=== PATIENT | male | born 1960 | race Caucasian/White ===

== ENCOUNTER 2022-06-28 16:17 | Outpatient (CLI) | payer OTHER, SELFPAY ==
[2022-06-28 22:39] LABS: PSA Screen* 1.17 ng/mL (0.10-4.00)
[2022-06-29 04:00] LABS: Chloride* 99 mmol/L (96-114); Potassium* 4.1 mmol/L (3.6-5.1); Sodium* 135 mmol/L (135-149)
[2022-06-29 04:03] LABS: Blood Urea Nitrogen* 23 mg/dL (7-30); Carbon Dioxide* 28 mmol/L (20-32); Creatinine* 0.9 mg/dL (0.5-1.5); Estimated Glomerular Filt Rate 96 ml/min; Glucose* 121 mg/dL (60-115)
[2022-06-29 04:04] LABS: Calcium* 9.6 mg/dL (8.4-10.6)
== END 2022-06-28 16:18 | disposition home or self-care (01) ==
PROVIDERS: PCP Family Medicine; Visit Provider Family Medicine
DX: E03.9 Hypothyroidism, unspecified (principal); I10 Essential (primary) hypertension; Z12.5 Encounter for screening for malignant neoplasm of prostate; Z13.6 Encounter for screening for cardiovascular disorders
CPT/HCPCS: 80048; 80185; 84153; 84443

== ENCOUNTER 2022-08-03 12:50 | Outpatient (CLI) | payer OTHER, SELFPAY ==
[2022-08-03 14:28] LABS: Chloride* 96 mmol/L (96-114); Sodium* 133 mmol/L (135-149)
[2022-08-03 14:29] LABS: Potassium* 5.4 mmol/L (3.6-5.1)
[2022-08-03 14:31] LABS: Creatinine* 5.1 mg/dL (0.5-1.5); Estimated Glomerular Filt Rate 12 ml/min
[2022-08-03 14:32] LABS: Blood Urea Nitrogen* 83 mg/dL (7-30); Calcium* 8.7 mg/dL (8.4-10.6); Carbon Dioxide* 19 mmol/L (20-32); Glucose* 139 mg/dL (60-115)
== END 2022-08-03 12:51 | disposition home or self-care (01) ==
PROVIDERS: PCP Family Medicine; Visit Provider Family Medicine
DX: I10 Essential (primary) hypertension (principal); E03.9 Hypothyroidism, unspecified
CPT/HCPCS: 80048; 84443

== ENCOUNTER 2022-08-04 13:04 | Inpatient (IN) | payer OTHER, SELFPAY ==
[2022-08-04] VITALS (7 sets, daily range): BP systolic 103–113; BP diastolic 40–58; PULSE 62–67; RESP 18; TEMP 36.3–36.6; O2SAT 92–97; BMI 51.6; BMI 56.4
--- NOTE | 2022-08-04 14:08 | ED.GENADULT ---
HPI - General Adult General Time Seen by Provider: 14:09 Date Seen: 08/04/22 Chief complaint: Unspecified Complaint, Adult Stated complaint: Critical Lab Creatinine Time Seen by Provider: 08/04/22 14:05 Source: patient, RN notes reviewed, old records reviewed and other ( Dr. Hopkins phone call) Mode of arrival: ambulatory Limitations: no limitations History of Present Illness HPI narrative: Oscar is a very pleasant 62-year-old gentleman with a history of recent antibiotic treatment for cellulitis, chronic lower extremity edema, history of DVT, who is sent to the emergency room by his primary physician Dr. Hopkins for elevated creatinine of 5. Oscar was an inpatient at [address] where he was treated IV Ancef, vancomycin and discharged on amoxicillin and Bactrim after improvement. He was also treated for edema and was able to diurese 20-22 lb. He notes that he has had some return of that fluid but certainly much improved from previous hospitalization. According to his creatinine was normal. Dr. Hopkins endorses this but Oscar had blood drawn yesterday which showed a creatinine of 5 and a potassium of 5.4. Oscar notes that he has been feeling fatigued today and did have an episodic shortness of breath but that has not persisted. He has not been vomiting any denies any chest pain. He notes no fevers or chills and although there has been significant improvement in his left lower extremity edema with sealing of the open wound and decreased redness it is still not back to normal in terms of color. Patient notes that he has had approximately 60 oz of water today. Did not take in any Gatorade or Powerade. He is very frustrated as his advice has been to elevate his leg but he works a job where that is impossible. He works in [employer]. Lives in [place]. Related Data Home Medications Medication Instructions Recorded Confirmed famotidine 20 mg tablet 20 mg PO BID 06/25/22 08/04/22 multivitamin (Multiple Vitamins 1 tab PO DAILY 06/25/22 08/04/22 tablet) potassium chloride 20 mEq 20 meq PO DAILY 06/25/22 08/04/22 tablet,extended release(part/cryst) phenytoin sodium extended 100 mg 300 - 400 mg PO BID 06/28/22 08/04/22 capsule amoxicillin 500 mg capsule 500 mg PO TID 08/03/22 08/04/22 sulfamethoxazole 800 2 tab PO BID 08/03/22 08/04/22 mg-trimethoprim 160 mg tablet furosemide 40 mg tablet 80 mg PO DAILY 08/04/22 08/04/22 gabapentin 600 mg tablet 900 mg PO HS 08/04/22 08/04/22 levothyroxine 50 mcg tablet 50 mcg PO DAILY 08/04/22 08/04/22 (Synthroid) tamsulosin 0.4 mg capsule 0.4 mg PO DAILY 08/04/22 08/04/22 warfarin 5 mg tablet (Jantoven) 5 - 7.5 mg PO DAILY 08/04/22 08/04/22 Previous Rx's Medication Instructions Recorded lisinopril 20 2 tab PO DAILY #180 tabs 07/14/22 mg-hydrochlorothiazide 25 mg tablet Allergies Allergy/AdvReac Type Severity Reaction Status Date / Time Fluconazole Allergy Intermediate chest heavy Uncoded 08/03/22 12:43 Review of Systems Status of ROS: Reports: 10 or more systems reviewed and unremarkable except as noted in History and below Const: Denies: fever or chills Eyes: Denies: change in vision ENMT: Denies: throat pain or difficulty swallowing Cardio: Reports: edema, swelling of feet/ankles ( Chronic but improved) and shortness of breath with exertion ( transient); Denies: chest pain or palpitations Resp: Reports: shortness of breath ( transient); Denies: cough GI: Denies: abdominal pain, nausea, vomiting, diarrhea or difficulty swallowing : Denies: painful urination Musculo: Denies: back pain or extremity pain Neuro: Denies: headache or weakness in extremities Endo: Denies: excessive urination [facility] Medical History Acute medial meniscus tear of right knee (06/10/20) Bilateral carpal tunnel syndrome BPH (benign prostatic hyperplasia) Edema Epilepsy Exogenous obesity Gastroesophageal reflux disease History of adenomatous polyp of colon (12/27/17) Hyperlipidemia (01/20/10) Hypertension Hypothyroidism Mild episode of recurrent major depressive disorder (06/25/10) Obstructive sleep apnea syndrome Osteoarthritis of knee Peripheral neuropathy Recurrent deep vein thrombosis (DVT) (2006) Stress fracture of metatarsal bone of left foot (11/2020) Umbilical hernia Family History Other Denzel's granulomatosis Social History Narrative: -Michelle 4 kids Non smoker Social EtOH Smoking Status: Former smoker Non-prescribed substance use: denies use Little interest or pleasure in doing things: not at all Feeling down, depressed, or hopeless: not at all Exam Narrative: Exam Narrative: Oscar is a very pleasant gentleman. His accompanies him. They are very elsa couple. Oscar is mentating and speaking normally. Neck is supple. Heart with regular rate and rhythm. Lungs are clear to auscultation. Abdomen is obese soft nontender. Lower extremities spoke with bilateral chronic edema. Left soc is removed and patient has a scab noted over anterior sore. Leg is not significantly warm to the touch. It does have dry skin that is flaking. It is somewhat erythematous but there is no well-demarcated boundaries of this. Const: Vital Signs, click to edit/add: Vital Signs - 24 hr 08/04/22 14:01 Temperature 97.4 F L Pulse Rate [Right Pulse Oximeter] 67 Respiratory Rate 18 Blood Pressure [Le ft Upper Arm] 103/50 L Pulse Oximetry 96 Oxygen Delivery Me thod Room Air Documenting provider has reviewed patient's vital signs: yes Course Course Hospital Course: Will place an IV and give 1 L of normal saline. EKG, comprehensive panel, CBC, CRP ordered at this time. Vital Signs Vital signs: Initial Vital Signs Temperature 97.4 F L 08/04/22 14:01 Temperature Source Temporal Artery Scan 08/04/22 14:01 Pulse Rate 67 08/04/22 14:01 Respiratory Rate 18 08/04/22 14:01 Blood Pressure 103/50 L 08/04/22 14:01 Blood Pressure Mean 67 08/04/22 14:01 Blood Pressure Position Sitting 08/04/22 14:01 Pulse Oximetry 96 08/04/22 14:01 Oxygen Delivery Method 08/04/22 14:01 Vital Signs Temperature 97.4 F L 08/04/22 14:01 Pulse Rate 67 08/04/22 14:01 Respiratory Rate 18 08/04/22 14:01 Blood Pressure 103/50 L 08/04/22 14:01 Pulse Oximetry 96 08/04/22 14:01 Oxygen Delivery Method 08/04/22 14:01 Temperature 97.4 F L 08/04/22 14:01 Pulse Rate 67 08/04/22 14:01 Respiratory Rate 18 08/04/22 14:01 Blood Pressure 103/50 L 08/04/22 14:01 Pulse Oximetry 96 08/04/22 14:01 Oxygen Delivery Method 08/04/22 14:01 Medical Decision Making MDM Narrative Medical decision making narrative: 1. Acute renal failure-likely a combination of aggressive diuresis and use of Bactrim. 1 L of normal saline at this time. Awaiting recheck of creatinine and potassium as the 5 was reflective of yesterday's status. Patient's creatinine has improved to 3.6 from yesterday's 5.1. Potassium has decreased to 5.0. 2. Left lower extremity cellulitis- improved. Antibiotic will need to be continued without Bactrim with appropriate coverage. 3. Disposition -Dr. Nguyen is in the department speaking to the patient. She is offering him discharged home with continued monitoring or inpatient treatment. Addendum: Patient will be admitted under outpatient observation for IV fluids. COVID negative Medical Records Medical records reviewed: Yes I reviewed the patient's medical records Lab Data Lab results reviewed: Yes I reviewed the patient's lab results Labs: Lab Results 08/04/22 08/04/22 08/04/22 Range/Units 15:28 15:38 15:38 WBC 6.12 (4.50-11.00) K/uL RBC 3.78 L (4.30-5.90) m/uL Hgb 11.7 L (13.5-17.5) gm/dL Hct 35.7 L (37.0-53.0) % MCV 94 (80-100) fL MCH 31 (26-34) pg MCHC 33 (32-36) gm/dL RDW Coeff of Kapil 13.0 (11.5-15.5) % Plt Count 370 (140-440) K/uL Neut % (Auto) 56.1 (42.0-72.0) % Lymph % (Auto) 26.8 (20-44) % [place] % (Auto) 11.1 H (0.0-11.0) % Eos % (Auto) 4.2 (0.0-7.0) % Baso % (Auto) 1.6 (0.0-3.0) % Neut # (Auto) 3.43 (1.7-7.0) K/uL Lymph # (Auto) 1.64 (0.90-2.90) K/uL [place] # (Auto) 0.70 (0.00-0.90) K/UL Eos # (Auto) 0.26 (0.00-0.50) K/uL Baso # (Auto) 0.10 (0.00-0.30) K/uL Abs Immat Gran (auto) 0.01 (0.00-0.30) K/uL Sodium 132 L (135-149) mmol/L Potassium 5.0 (3.6-5.1) mmol/L Chloride 99 (96-114) mmol/L Carbon Dioxide 20 (20-32) mmol/L BUN 85 H (7-30) mg/dL Creatinine 3.6 H (0.5-1.5) mg/dL Estimated Creat Clear 18.95 Estimated GFR 18 ml/min Glucose 106 (60-115) mg/dL Calcium 8.9 (8.4-10.6) mg/dL Total Bilirubin 0.3 (0.1-1.5) mg/dL AST 49 H (12-35) U/L ALT 40 (4-50) U/L Alkaline Phosphatase 124 (40-150) U/L C-Reactive Protein 3.2 H (0.5-1.0) mg/dL Total Protein 7.5 (6.0-8.3) g/dL Albumin 3.9 (3.3-5.0) g/dL SARS-CoV-2 (PCR) Negative SARS-CoV-2 (Negative) ECG Data Attestation: I personally reviewed and interpreted this ECG as follows: Interpretation: EKG by my read shows sinus rhythm at a rate of 62. There are no acute ST or T-wave changes noted. No peaked T-waves to indicate hyper Melanie Mary Ann. Discharge Plan Discharge Clinical Impression: Acute renal failure, Cellulitis Patient Disposition: Admitted As Inpatient Condition: Unchanged
[2022-08-04 15:47] LABS: Basophils Percent Auto 1.6 % (0.0-3.0); Eosinophils Absolute Auto 0.26 K/uL (0.00-0.50); Eosinophils Percent Auto 4.2 % (0.0-7.0); Hematocrit 35.7 % (37.0-53.0); Hemoglobin* 11.7 gm/dL (13.5-17.5); Immature Granulocytes Abs Auto 0.01 K/uL (0.00-0.30); Lymphocytes Absolute Auto 1.64 K/uL (0.90-2.90); Lymphocytes Percent Auto 26.8 % (20-44); Mean Corpuscular HGB Conc 33 gm/dL (32-36); Mean Corpuscular Hemoglobin 31 pg (26-34); Mean Corpuscular Volume 94 fL (80-100); Monocytes Percent Auto 11.1 % (0.0-11.0); Neutrophils Absolute Auto 3.43 K/uL (1.7-7.0); Neutrophils Percent Auto 56.1 % (42.0-72.0); Platelet Count* 370 K/uL (140-440); Red Blood Count 3.78 m/uL (4.30-5.90); White Blood Count* 6.12 K/uL (4.50-11.00)
[2022-08-04 15:54] LABS: Slide Review Reflex No
[2022-08-04 16:05] LABS: Albumin* 3.9 g/dL (3.3-5.0); Chloride* 99 mmol/L (96-114); Sodium* 132 mmol/L (135-149)
[2022-08-04 16:07] LABS: Bilirubin Total* 0.3 mg/dL (0.1-1.5); Creatinine* 3.6 mg/dL (0.5-1.5); Est. Creatinine Clearance* 18.95; Estimated Glomerular Filt Rate 18 ml/min
[2022-08-04 16:08] LABS: Alanine Aminotransferase* 40 U/L (4-50); Alkaline Phosphatase* 124 U/L (40-150); Aspartate Amino Transferase* 49 U/L (12-35); Blood Urea Nitrogen* 85 mg/dL (7-30); Carbon Dioxide* 20 mmol/L (20-32); Glucose* 106 mg/dL (60-115); Total Protein* 7.5 g/dL (6.0-8.3)
[2022-08-04 16:09] LABS: Calcium* 8.9 mg/dL (8.4-10.6)
[2022-08-04 16:11] LABS: C Reactive Protein* 3.2 mg/dL (0.5-1.0)
--- NOTE | 2022-08-04 16:25 | P.IMHP_ITS ---
Hospitalist- H&P: HPI History of Present Illness Date Seen: 08/04/22 Chief complaint: Critical Lab Creatinine Narrative: Oscar Guzman is a 62 year old male who presented to the ED with his after receiving abnormal lab results from his outpatient PCP appt yesterday with Dr. Hopkins. He was being seen for hospital follow-up, had a BMP drawn which exhibited a creatinine of 5.1 and a potassium of 5.4. He was called with results this morning, drink close to a liter of water at work, and repeat creatinine today has improved to 3.6 with a potassium of 5.0. EKG in ED was reassuring. Patient denies chest pain, shortness of breath, urinary symptoms, abdominal pain. Recently hospitalized at [address] (07/21-07/29/2022), records reviewed. Stay notable for LLE cellulitis (on presentation, was febrile and tachycardic with lactate of 2.5). Wound culture obtained, positive for Serratia and Enterococcus (placed on Ampicillin and Bactrim 2/2 sensitivities). During stay, he had an acute nonverbal event and a stroke code was called. Patient had a reassuring CT of head and CTA of head and neck; Neurology felt that symptoms were more likely related to complex partial seizure than acute CVA given history of seizure d/o and no residual deficits from event. Patient also has significant lower extremity edema; diuresed quite well during hospital stay in [place] (lost 22 lb). He is being worked up by PCP for this. Medical and surgical history noted below. Patient is currently a nonsmoker, social ETOH user. Lives with in [place], [place]. Review of Systems Status of ROS: Reports: 10 or more systems reviewed and unremarkable except as noted in History and below [facility] Medical History Acute medial meniscus tear of right knee (06/10/20) Bilateral carpal tunnel syndrome BPH (benign prostatic hyperplasia) Edema Epilepsy Exogenous obesity Gastroesophageal reflux disease History of adenomatous polyp of colon (12/27/17) Hyperlipidemia (01/20/10) Hypertension Hypothyroidism Mild episode of recurrent major depressive disorder (06/25/10) Obstructive sleep apnea syndrome Osteoarthritis of knee Peripheral neuropathy Recurrent deep vein thrombosis (DVT) (2006) Stress fracture of metatarsal bone of left foot (11/2020) Umbilical hernia Family History Other Denzel's granulomatosis Social History Narrative: -Michelle 4 kids Non smoker Social EtOH Highest level of school completed/degree received: high school graduate Smoking Status: Former smoker How often do you have a drink containing alcohol: monthly or less Alcohol type: beer Alcohol type details: social drinker How many standard drinks containing alcohol do you have on a typical day: 1 or 2 How often do you have six or more drinks on one occasion: Monthly AUDIT-C Alcohol total score: 3 Non-prescribed substance use: denies use Little interest or pleasure in doing things: not at all Feeling down, depressed, or hopeless: not at all Meds Home Medications and Allergies Home Medications Medication Instructions Recorded Confirmed Type famotidine 20 mg tablet 20 mg PO BID 06/25/22 08/04/22 History multivitamin (Multiple Vitamins 1 tab PO DAILY 06/25/22 08/04/22 History tablet) potassium chloride 20 mEq 20 meq PO DAILY 06/25/22 08/04/22 History tablet,extended release(part/cryst) phenytoin sodium extended 100 mg 300 - 400 mg PO BID 06/28/22 08/04/22 History capsule amoxicillin 500 mg capsule 500 mg PO TID 08/03/22 08/04/22 History sulfamethoxazole 800 2 tab PO BID 08/03/22 08/04/22 History mg-trimethoprim 160 mg tablet furosemide 40 mg tablet 80 mg PO DAILY 08/04/22 08/04/22 History gabapentin 600 mg tablet 900 mg PO HS 08/04/22 08/04/22 History levothyroxine 50 mcg tablet 50 mcg PO DAILY 08/04/22 08/04/22 History (Synthroid) tamsulosin 0.4 mg capsule 0.4 mg PO DAILY 08/04/22 08/04/22 History warfarin 5 mg tablet (Jantoven) 5 - 7.5 mg PO DAILY 08/04/22 08/04/22 History Allergies Allergy/AdvReac Type Severity Reaction Status Date / Time fluconazole AdvReac Intermediate Verified 08/04/22 17:24 Exam Narrative: Exam Narrative: GEN: Alert and oriented, nontoxic in appearance and speaking in full sentence HEENT: Normal external ears, EOMIs bilaterally or me CV: RRR, No concerning murmurs, rubs, or gallops R: LCTA bilaterally without concerning wheezing, rales, or rhonchi Ext: 3+ pitting edema BLE, erythema of LLE anteriorly Skin: Besides erythema of LLE, no other concerning skin findings on exposed skin Neuro: Nonfocal, no resting tremor Psych: Appropriate Const: Vital Signs, click to edit/add: Vital Signs - 24 hr 08/04/22 14:01 Temperature 97.4 F L Pulse Rate [Right Pulse Oximeter] 67 Respiratory Rate 18 Blood Pressure [Le ft Upper Arm] 103/50 L Pulse Oximetry 96 Oxygen Delivery Me thod Room Air Hospitalist - H&P: Result Labs Labs: Short CBC 08/04/22 Range/Units 15:38 WBC 6.12 (4.50-11.00) K/uL Hgb 11.7 L (13.5-17.5) gm/dL Hct 35.7 L (37.0-53.0) % Plt Count 370 (140-440) K/uL BMP 08/04/22 15:38 Sodium 132 L Potassium 5.0 Chloride 99 Carbon Dioxide 20 BUN 85 H Creatinine 3.6 H Glucose 106 Calcium 8.9 Liver Function 08/04/22 Range/Units 15:38 Total Bilirubin 0.3 (0.1-1.5) mg/dL AST 49 H (12-35) U/L ALT 40 (4-50) U/L Alkaline Phosphatase 124 (40-150) U/L Albumin 3.9 (3.3-5.0) g/dL Assessment and Plan Assessment and plan (1) Acute renal failure: Status: Acute Assessment and Plan: - likely iatrogenic from Bactrim, potassium within normal limits today - will admit for IVFs, hold Bactrim, Lasix, potassium supplementation, and Lisinopril - follow renal function (2) Edema: Status: Acute Assessment and Plan: - hold home dose of Lasix during stay given acute kidney injury - patient is having workup as an outpatient with PCP for his edema (3) Epilepsy: Status: Acute Assessment and Plan: - quiescent, seizure precautions, continue home meds (4) Cellulitis of left leg: Status: Acute Assessment and Plan: - for Serratia, we will hold her Bactrim and treat with ceftriaxone per sensitivities from outside hospital - continue amoxicillin for Enterococcus - wound is overall improving - plan to discharge on Amoxicillin for Enterococcus and Omnicef for Serratia Plan - per above - Home coumadin for ppx - lives independently with , plans to go home with her upon discharge - Full Code status
[2022-08-04 16:28] LABS: SARS PCR* Negative SARS-CoV-2 (Negative)
[2022-08-04 16:52] LABS: Appearance Urine Clear (Clear); Bilirubin Urine Negative (Negative); Blood Urine Negative (Negative); Color Urine Yellow (Yellow); Glucose Urine Negative (Negative); Ketones Urine Negative (Negative); Leukocyte Esterase Urine Negative (Negative); Nitrite Urine Negative (Negative); Protein Urine Negative (Negative); Urobilinogen Urine 0.2 (0.2-1.0); pH Urine 5.5 (5.0-8.5)
[2022-08-04 17:09] LABS: Mucus Urine Few; RBC Urine 0-2 (0-2); Squamous Epithelial Cell Urine Few (None-Few); WBC Urine 0-2 (0-5)
[2022-08-04] MEDS: cefTRIAXone 1 GM in 0.9 % SODIUM CHLORIDE Mini-bag 100 ML IVPB (19:36)
[2022-08-04] MEDS: 0.9 % SODIUM CHLORIDE 1000 ml 1,000 ML 250 ML IV (19:37)
[2022-08-04] MEDS: PHENYTOIN EXTENDED RELEASE 100 MG CAPSULE 400 MG PO (22:02)
[2022-08-04] MEDS: ACETAMINOPHEN 325 MG TABLET 975 MG PO (22:03)
[2022-08-04] MEDS: GABAPENTIN 300 MG CAPSULE 900 MG PO (22:04)
[2022-08-04] MEDS: AMOXICILLIN 250 MG CAPSULE 500 MG PO (22:16)
[2022-08-04] MEDS: FAMOTIDINE 20 MG TABLET PO (22:16)
[2022-08-05] VITALS (10 sets, daily range): BP systolic 105–123; BP diastolic 45–65; PULSE 56–77; RESP 18; TEMP 36.4–36.8; O2SAT 92–98
[2022-08-05] MEDS: 0.9 % SODIUM CHLORIDE 1000 ml 1,000 ML 125 ML IV ×2 (00:18→09:33)
--- NOTE | 2022-08-05 04:44 | PC.NURSE ---
[id number]: patient up ad zenia, appears to have slept well overnight, uses home CPAP overnight lower legs red and warm bilaterally but patient reports no pain. tele NSR
[2022-08-05] MEDS: ACETAMINOPHEN 325 MG TABLET 975 MG PO (05:09)
[2022-08-05] MEDS: LEVOTHYROXINE 50 MCG TABLET PO (06:16)
[2022-08-05 08:08] LABS: Basophils Percent Auto 1.6 % (0.0-3.0); Eosinophils Percent Auto 5.3 % (0.0-7.0); Hematocrit 38.7 % (37.0-53.0); Hemoglobin* 12.3 gm/dL (13.5-17.5); Lymphocytes Percent Auto 30.4 % (20-44); Mean Corpuscular HGB Conc 32 gm/dL (32-36); Mean Corpuscular Hemoglobin 31 pg (26-34); Mean Corpuscular Volume 96 fL (80-100); Monocytes Percent Auto 10.8 % (0.0-11.0); Neutrophils Percent Auto 51.7 % (42.0-72.0); Platelet Count* 357 K/uL (140-440); RDW Coefficient of Variation % 13.2 % (11.5-15.5); Red Blood Count 4.02 m/uL (4.30-5.90); White Blood Count* 4.34 K/uL (4.50-11.00)
[2022-08-05 08:12] LABS: Slide Review Reflex No
[2022-08-05 08:30] LABS: Chloride* 104 mmol/L (96-114)
[2022-08-05 08:31] LABS: Sodium* 137 mmol/L (135-149)
[2022-08-05 08:32] LABS: INR 2.06 (0.91-1.10); Prothrombin Time 24.3 Seconds
[2022-08-05 08:33] LABS: Carbon Dioxide* 24 mmol/L (20-32); Creatinine* 1.8 mg/dL (0.5-1.5); Est. Creatinine Clearance* 35.17; Estimated Glomerular Filt Rate 42 ml/min
[2022-08-05 08:34] LABS: Blood Urea Nitrogen* 63 mg/dL (7-30); Calcium* 9.3 mg/dL (8.4-10.6); Glucose* 120 mg/dL (60-115)
[2022-08-05 08:42] LABS: Potassium* 6.2 mmol/L (3.6-5.1)
[2022-08-05] MEDS: FUROSEMIDE 10 MG/ML inj 40 MG IVP (09:33)
[2022-08-05] MEDS: TAMSULOSIN HCL 0.4 MG CAPSULE PO (09:33)
[2022-08-05] MEDS: WARFARIN 2.5 MG TABLET 7.5 MG PO (09:34)
[2022-08-05] MEDS: FAMOTIDINE 20 MG TABLET PO (09:34)
[2022-08-05] MEDS: PHENYTOIN EXTENDED RELEASE 100 MG CAPSULE 300 MG PO (09:35)
[2022-08-05 12:17] LABS: Magnesium* 2.5 mg/dL (1.5-2.6)
[2022-08-05 14:21] LABS: Potassium* 5.6 mmol/L (3.6-5.1)
--- NOTE | 2022-08-05 15:32 | PM.DS1 ---
DS: Providers Provider Date Seen: 08/05/22 Date of admission: 08/04/22 17:20 Primary care physician: Ezequiel Hopkins MD Admitting Clinician: Hemalatha Nguyen MD Attending Physician on discharge: Hemalatha Nguyen MD Date of Discharge: 08/05/22 DS: Diagnosis Discharge Diagnosis (1) Acute renal failure: Status: Acute Problem details: Acute renal failure likely due to Bactrim treatment primarily. Recommend no further Bactrim therapy. Other contributors include diuretic therapy and lisinopril. Creatinine improved from 5.4 to 1.8 over 2 days. Stop Bactrim. Hold lisinopril hydrochlorothiazide for now. Avoid NSAIDs for now. Low-potassium diet for now Continue furosemide 80 mg daily. (2) Hyperkalemia: Status: Acute Problem details: Due to acute kidney injury and Bactrim therapy. Improving. Hold lisinopril/HCTZ and potassium. Check basic metabolic panel tomorrow. Continue furosemide. Low-potassium diet for now. Avoid NSAIDs for now. Follow up in clinic in 4 days for recheck of basic metabolic panel and blood pressure and edema (3) Cellulitis of left leg: Status: Acute Problem details: Cellulitis looks resolved. Stop antibiotics. (4) Edema: Status: Acute Problem details: Longstanding lymphedema. Primary treatment is compression and elevation. Ongoing diuretic therapy also likely necessary. (5) Hypertension: Status: Acute Problem details: Monitor hypertension with multiple changes to medications noted above. DS: Summary Hospital Course Hospital Course: 62-year-old male admitted to the hospital with acute kidney injury. Patient had been treated at [address] in [place] over the last 10 days for leg cellulitis. He has been on Bactrim and Keflex. Laboratory studies incidentally found to have hyperkalemia and elevated creatinine of 5.4. He was admitted to the hospital with the likely culprit of his problem being Bactrim. Bactrim and lisinopril and potassium were held. His potassium went up a little bit overnight but improved today now at 5.6. His creatinine went down to 1.8. He was relatively asymptomatic with this. Inspection of his leg showed very mild redness of the left leg compared to the right. Antibiotics were discontinued. Status at Discharge Functional status at discharge: independent ambulation Overall status at discharge: patient is back to baseline Time Spent with Patient Time attestation: Total time spent providing and/or coordinating discharge services: Time spent: Greater than 30 minutes Exam Narrative: Exam Narrative: He is alert and appears in no distress. Respirations are clear to auscultation. Cardiovascular: S1, S2, regular rate and rhythm. No murmur gallop or rub. Abdomen is soft without tenderness or mass. Large abdominal pannus. Lower extremities are examined with 3+ edema bilaterally mild erythema on the left palomares. None on the right. No tenderness. Cracking skin on the bottom of his foot without evidence of infection. Const: Vital Signs, click to edit/add: Vital Signs - 24 hr 08/04/22 17:37 08/04/22 17:38 08/04/22 17:41 Temperature 97.3 F L 97.3 F L Pulse Rate Pulse Rate [Right Radial] 66 Respiratory Rate 18 18 Blood Pressure [Ri ght Arm] 113/40 L 113/40 L Pulse Oximetry 96 97 97 Oxygen Delivery Me thod Room Air Room Air Room Air 08/04/22 17:52 08/04/22 22:33 08/04/22 23:00 Temperature 98 F Pulse Rate 62 Pulse Rate [Right Radial] 62 Respiratory Rate 18 18 Blood Pressure [Ri ght Arm] 104/58 L Pulse Oximetry 97 92 Oxygen Delivery Me thod Room Air Room Air 08/04/22 23:00 08/05/22 00:00 08/05/22 03:00 Temperature 98.3 F Pulse Rate Pulse Rate [Right Radial] 62 70 Respiratory Rate 18 18 Blood Pressure [Ri ght Arm] 108/54 L 112/50 L Pulse Oximetry 92 98 Oxygen Delivery Me thod CPAP CPAP 08/05/22 07:33 08/05/22 08:00 08/05/22 08:00 Temperature 97.5 F L Pulse Rate 56 L Pulse Rate [Right Radial] 67 67 Respiratory Rate 18 18 Blood Pressure [Ri ght Arm] 117/55 L Pulse Oximetry 98 Oxygen Delivery Me thod Room Air CPAP 08/05/22 09:52 08/05/22 12:15 Temperature 97.7 F Pulse Rate Pulse Rate [Right Radial] 58 L Respiratory Rate 18 Blood Pressure [Ri ght Arm] 105/45 L Pulse Oximetry 98 97 Oxygen Delivery Me thod Room Air Room Air DS: Data Data Completed and Pending Labs on day of discharge: Labs from last 24 hours 08/05/22 08/05/22 08/05/22 13:37 08:02 08:02 WBC 4.34 L RBC 4.02 L Hgb 12.3 L Hct 38.7 MCV 96 MCH 31 MCHC 32 RDW Coeff of Kapil 13.2 Plt Count 357 Neut % (Auto) 51.7 Lymph % (Auto) 30.4 [place] % (Auto) 10.8 Eos % (Auto) 5.3 Baso % (Auto) 1.6 Neut # (Auto) 2.20 Lymph # (Auto) 1.30 [place] # (Auto) 0.50 Eos # (Auto) 0.20 Baso # (Auto) 0.10 Abs Immat Gran (auto) 0.01 Imm/Tot Granulo (auto) Pending INR Sodium 137 Potassium 5.6 H 6.2 H* Chloride 104 Carbon Dioxide 24 BUN 63 H Creatinine 1.8 H Estimated Creat Clear 35.17 Estimated GFR 42 Glucose 120 H Calcium 9.3 Magnesium 2.5 Total Bilirubin AST ALT Alkaline Phosphatase C-Reactive Protein Total Protein Albumin Urine Color Urine Appearance Urine pH Ur Specific [place] Urine Protein Urine Glucose (UA) Urine Ketones Urine Blood Urine Nitrite Urine Bilirubin Urine Urobilinogen Ur Leukocyte Esterase Urine RBC Urine WBC Ur Squamous Epith Cells Urine Bacteria Urine Mucus SARS-CoV-2 (PCR) 08/05/22 08/04/22 08/04/22 08:02 16:40 15:38 WBC RBC Hgb Hct MCV MCH MCHC RDW Coeff of Kapil Plt Count Neut % (Auto) Lymph % (Auto) [place] % (Auto) Eos % (Auto) Baso % (Auto) Neut # (Auto) Lymph # (Auto) [place] # (Auto) Eos # (Auto) Baso # (Auto) Abs Immat Gran (auto) Imm/Tot Granulo (auto) INR 2.06 H Sodium 132 L Potassium 5.0 Chloride 99 Carbon Dioxide 20 BUN 85 H Creatinine 3.6 H Estimated Creat Clear 18.95 Estimated GFR 18 Glucose 106 Calcium 8.9 Magnesium Total Bilirubin 0.3 AST 49 H ALT 40 Alkaline Phosphatase 124 C-Reactive Protein 3.2 H Total Protein 7.5 Albumin 3.9 Urine Color Yellow Urine Appearance Clear Urine pH 5.5 Ur Specific [place] 1.020 Urine Protein Negative Urine Glucose (UA) Negative Urine Ketones Negative Urine Blood Negative Urine Nitrite Negative Urine Bilirubin Negative Urine Urobilinogen 0.2 Ur Leukocyte Esterase Negative Urine RBC 0-2 Urine WBC 0-2 Ur Squamous Epith Cells Few Urine Bacteria None Urine Mucus Few A SARS-CoV-2 (PCR) 08/04/22 08/04/22 15:38 15:28 WBC 6.12 RBC 3.78 L Hgb 11.7 L Hct 35.7 L MCV 94 MCH 31 MCHC 33 RDW Coeff of Kapil 13.0 Plt Count 370 Neut % (Auto) 56.1 Lymph % (Auto) 26.8 [place] % (Auto) 11.1 H Eos % (Auto) 4.2 Baso % (Auto) 1.6 Neut # (Auto) 3.43 Lymph # (Auto) 1.64 [place] # (Auto) 0.70 Eos # (Auto) 0.26 Baso # (Auto) 0.10 Abs Immat Gran (auto) 0.01 Imm/Tot Granulo (auto) Not Reportable INR Sodium Potassium Chloride Carbon Dioxide BUN Creatinine Estimated Creat Clear Estimated GFR Glucose Calcium Magnesium Total Bilirubin AST ALT Alkaline Phosphatase C-Reactive Protein Total Protein Albumin Urine Color Urine Appearance Urine pH Ur Specific [place] Urine Protein Urine Glucose (UA) Urine Ketones Urine Blood Urine Nitrite Urine Bilirubin Urine Urobilinogen Ur Leukocyte Esterase Urine RBC Urine WBC Ur Squamous Epith Cells Urine Bacteria Urine Mucus SARS-CoV-2 (PCR) Negative SARS-CoV-2 Discharge Plan Discharge Disposition: Home, Self-Care Date of Admission: 08/04/22 17:20 Attending Provider on Discharge: Rory Lopez Primary Care Provider: Ezequiel Hopkins Condition: Unchanged Anticipated Discharge Date/Time: 08/05/22 14:45 Discharge Medications: Continued famotidine 20 mg tablet 20 mg PO BID multivitamin [Multiple Vitamins] Tablet 1 tab PO DAILY phenytoin sodium extended 100 mg capsule 300 - 400 mg PO BID Rx Instructions: 300 MG IN AM 400 MG IN PM gabapentin 600 mg tablet 900 mg PO HS tamsulosin 0.4 mg capsule 0.4 mg PO DAILY levothyroxine [Synthroid] 50 mcg tablet 50 mcg PO DAILY furosemide 40 mg tablet 80 mg PO DAILY warfarin [Jantoven] 5 mg tablet 5 - 7.5 mg PO DAILY Rx Instructions: 5 MG SUN, WED, FRI 7.5 ALL OTHER DAYS Discontinued potassium chloride 20 mEq tablet,ER particles/crystals 20 meq PO DAILY sulfamethoxazole-trimethoprim 800-160 mg tablet 2 tab PO BID amoxicillin 500 mg capsule 500 mg PO TID Label Comments: TAKE 1 CAPSULE BY MOUTH 3 TIMES A DAY FOR 10 DAYS lisinopril-hydrochlorothiazide 20-25 mg tablet 2 tab PO DAILY Qty: 180 3RF Discharge Orders: Discharge Order (Routine); Ordered 08/05/22 Ordered By: Rory Lopez Patient Education: Acute Kidney Injury (DC), Cellulitis (GEN), Hyperkalemia (DC) Additional Instructions: Your kidney function was hurt by a combination of factors, the primary problem was Bactrim which you should not take again. Additional problem is your lisinopril. Do not take that until you see your doctor next week. Other things that can affect her kidney function are medicines like ibuprofen or Naprosyn. Also avoid those until you see your doctor. Your potassium is too high. This is primarily because of your kidney problem. Until you see your doctor you should not eat high potassium foods like potatoes and bananas and you should not take your potassium pills until you see your doctor. Your leg infection looks better today and I do not think you need antibiotics right now. Keep using compression stockings and elevate your leg is often is you can and as high as you can raise your leg up. You need a blood test, basic metabolic panel, checked tomorrow and in [address] Dr. Hopkins. Activity Level: No Restrictions Discharge Diet: Renal Follow Up Appointments: Ezequiel Hopkins MD [Primary Care Provider] - 08/09/22 10:00 am (See your doctor on Tuesday, in 4 days in [facility] they will also do a basic metabolic panel at this time. [facility] will do the BMP TuesdayAug.06 and give results to Dr. Lopez you will be given an order to bring to the Hospital Lab.) Forms: [employer] Info Instructions
--- NOTE | 2022-08-05 17:42 | PC.NURSE ---
End of shift. Pt has been pleasant. he is up ad zenia. no pain. he is eating, drinking and voidimng/ appears to have slept well overnight, uses home CPAP overnight lower legs red and warm bilaterally but patient reports no pain. tele NSR
--- NOTE | 2022-08-05 17:44 | PC.NURSE ---
discharge. pt has been very pleasant. he like to be funny and like humor. no pain. he is eating drinking and voiding. lower legs red and warm bilaterally but look good. IV is patent. it was later SL and d/c intact. tele NSR it was also d/c intact. Potassium was drawn and came down went over discharge packet with pt went over 3 4 stopped meds. appts x2. education and instructions. no belonging sheet found./ all pt's paperwork and belongs packed up. CPAP also. pt got a w/c ride to car and was helped in to car.
== END 2022-08-05 17:25 | disposition home or self-care (01) | DRG 683 ==
LOC: ED 16:39 → MEDSURG 20:53
PROVIDERS: Family Medicine; Admitting Provider Family Medicine; Emergency Provider Family Medicine; PCP Family Medicine; Visit Provider Family Medicine
DX: N17.9 Acute kidney failure, unspecified (principal); L03.116 Cellulitis of left lower limb; Z68.43 Body mass index [BMI] 50.0-59.9, adult; B95.2 Enterococcus as the cause of diseases classified elsewhere; B96.89 Other specified bacterial agents as the cause of diseases classified elsewhere; T36.8X5A Adverse effect of other systemic antibiotics, initial encounter; E87.5 Hyperkalemia; R60.0 Localized edema; G40.909 Epilepsy, unspecified, not intractable, without status epilepticus; E66.09 Other obesity due to excess calories; K21.9 Gastro-esophageal reflux disease without esophagitis; N40.0 Benign prostatic hyperplasia without lower urinary tract symptoms; I10 Essential (primary) hypertension; G47.33 Obstructive sleep apnea (adult) (pediatric); G62.9 Polyneuropathy, unspecified; Z86.718 Personal history of other venous thrombosis and embolism; E78.5 Hyperlipidemia, unspecified; E03.9 Hypothyroidism, unspecified; Z79.01 Long term (current) use of anticoagulants
CPT/HCPCS: 36415; 80048; 80053; 81001; 83735; 84132; 85025; 85610; 86140; 87635; 93005; 99284; 99285; A9270; J0696; J1940; J7030

== ENCOUNTER 2022-08-06 10:35 | Outpatient (REF) | payer OTHER, SELFPAY ==
[2022-08-06 11:05] LABS: Chloride* 105 mmol/L (96-114); Potassium* 5.1 mmol/L (3.6-5.1); Sodium* 139 mmol/L (135-149)
[2022-08-06 11:07] LABS: Creatinine* 0.8 mg/dL (0.5-1.5); Estimated Glomerular Filt Rate 99 ml/min
[2022-08-06 11:08] LABS: Blood Urea Nitrogen* 41 mg/dL (7-30); Carbon Dioxide* 25 mmol/L (20-32); Glucose* 138 mg/dL (60-115)
== END 2022-08-06 10:36 | disposition home or self-care (01) ==
LOC: NPINS 10:35
PROVIDERS: PCP Family Medicine; Visit Provider Family Medicine
DX: I89.0 Lymphedema, not elsewhere classified (principal)
CPT/HCPCS: 80048

== ENCOUNTER 2022-08-09 10:42 | Outpatient (CLI) | payer OTHER, SELFPAY ==
[2022-08-09 14:03] LABS: Chloride* 101 mmol/L (96-114); Potassium* 4.5 mmol/L (3.6-5.1); Sodium* 136 mmol/L (135-149)
[2022-08-09 14:06] LABS: Blood Urea Nitrogen* 27 mg/dL (7-30); Carbon Dioxide* 26 mmol/L (20-32); Creatinine* 0.7 mg/dL (0.5-1.5); Estimated Glomerular Filt Rate 104 ml/min; Glucose* 114 mg/dL (60-115)
[2022-08-09 14:07] LABS: Calcium* 9.7 mg/dL (8.4-10.6)
== END 2022-08-09 10:43 | disposition home or self-care (01) ==
LOC: FBOREF 10:43
PROVIDERS: PCP Family Medicine; Visit Provider Family Medicine
DX: N17.9 Acute kidney failure, unspecified (principal)
CPT/HCPCS: 80048

== ENCOUNTER 2022-09-02 12:30 | Outpatient (CLI) | payer OTHER, SELFPAY ==
[2022-09-02 15:41] LABS: Chloride* 97 mmol/L (96-114)
[2022-09-02 15:42] LABS: Potassium* 4.2 mmol/L (3.6-5.1); Sodium* 138 mmol/L (135-149)
[2022-09-02 15:44] LABS: Creatinine* 0.9 mg/dL (0.5-1.5); Estimated Glomerular Filt Rate 96 ml/min
[2022-09-02 15:45] LABS: Blood Urea Nitrogen* 29 mg/dL (7-30); Calcium* 9.7 mg/dL (8.4-10.6)
[2022-09-02 16:41] LABS: Carbon Dioxide* 28 mmol/L (20-32)
[2022-09-02 16:42] LABS: Glucose* 152 mg/dL (60-115)
== END 2022-09-02 12:31 | disposition home or self-care (01) ==
LOC: FBOREF 12:31
PROVIDERS: PCP Family Medicine; Visit Provider Family Medicine
DX: N17.9 Acute kidney failure, unspecified (principal)
CPT/HCPCS: 80048

== ENCOUNTER 2022-11-08 16:00 | Outpatient (CLI) | payer OTHER, SELFPAY ==
[2022-11-08 22:10] LABS: Chloride* 99 mmol/L (96-114)
[2022-11-08 22:11] LABS: Potassium* 3.7 mmol/L (3.6-5.1); Sodium* 137 mmol/L (135-149)
[2022-11-08 22:13] LABS: Creatinine* 1.1 mg/dL (0.5-1.5); Estimated Glomerular Filt Rate 75 ml/min
[2022-11-08 22:14] LABS: Blood Urea Nitrogen* 40 mg/dL (7-30); Calcium* 8.8 mg/dL (8.4-10.6); Carbon Dioxide* 30 mmol/L (20-32); Glucose* 152 mg/dL (60-115)
== END 2022-11-08 16:01 | disposition home or self-care (01) ==
PROVIDERS: PCP Family Medicine; Visit Provider Family Medicine
DX: I10 Essential (primary) hypertension (principal); E03.9 Hypothyroidism, unspecified
CPT/HCPCS: 80048; 84443

== ENCOUNTER 2023-08-12 13:25 | Outpatient (CLI) | payer OTHER, SELFPAY | END 2023-08-12 13:26 | disposition home or self-care (01) | LOC: NFLDREF 08-16 21:35 | PROVIDERS: PCP Family Medicine; Referring Provider Family Medicine; Visit Provider Family Medicine | DX: E03.9 Hypothyroidism, unspecified (principal); Z51.81 Encounter for therapeutic drug level monitoring; Z79.01 Long term (current) use of anticoagulants | CPT/HCPCS: 84443 ==

== ENCOUNTER 2023-11-04 13:32 | Outpatient (CLI) | payer OTHER, SELFPAY ==
--- OUTSIDE RECORDS SUMMARY | 2023-11-04 13:34 | XMS_ITS | Encounter Summary ---
Author Name Unknown Organization [facility] Address [address] [place] [address] Care Team Providers Care Community Health Consultant Name Role Phone Unavailable Primary Care Provider Unavailabl e Reason for Visit * Reason Comments Emg * Appointment Request (Routine) - Closed Specialty Diagnoses / Procedures Referred By Maria Del Rosario pineda Referred To Contact Neurology Ezequiel Hopkins M.D. [address] [place] [address] Referral ID Status Reason Start Date Expiration Date Visits Re quested Visits Authorized [id number] Closed 09/08/2022 09/08/2023 1 1 Encounter Details Date Type Department Care Team (Late st Contact Info) Description 01/12/2023 8:45 AM CDT Diagnostic Department of Neurology in [place], [place] [address] [address] Nils Fuentes M.D. [address] [address] Carpal Tunnel Syndrome Bilateral (Primary Dx) Social History Tobacco Use Types Packs/Day Years Used Date Smoking Tobacco: Never Assessed Nutrition Answer Date Recorded Nutrition: EVOO Fat Source Unknown 02/11 Nutrition: Servings of Fruits/Vegetables per Day Not on file 02/11/2021 Dental Answer Date Recorded Dental: Regular Dentist Unknown 02/12/20 21 Sex and Gender Information Value Date Recorded Sex Assigned at Not on file Gender Identity Not on file Sexual Orientation Not on file documented as of this encounter Plan of Treatment Not on file documented as of this encounter Visit Diagnoses Diagnosis Carpal Tunnel Syndrome Bilateral- Primary documented in this encounter
--- OUTSIDE RECORDS SUMMARY | 2023-11-04 13:34 | XMS_ITS | Referral Summary ---
Author Name Unknown Organization [facility] Address [address] [place] [address] Care Team Providers Care Key Holder Name Role Phone Unavailable Primary Care Provider Unavailabl e Source Comments Patient records contain information from all sites at [facility]. For routine questions regarding patient records, call [phone] during business hours, M-F 8:00 AM - 5:00 PM Central Time. Record requests for emergency care only can be directed to [phone] at any time.[facility] Allergies Active Allergy Reactions Criticality Noted Date Comments Fluconazole Other (see comments) 11/10/2006 Immunizations Name Administration Dates Next Due Influenza, Unspecified 08/13/2008,09/02/2005 Social History Tobacco Use Types Packs/Day Years [...] on file Sexual Orientation Not on file Plan of Treatment Not on file
--- OUTSIDE RECORDS SUMMARY | 2023-11-04 13:34 | XMS_ITS ---
Author Name Unknown Organization [facility] Address [address] [place] [address] Care Team Providers Care Director Of Quality Control Name Role Phone Unavailable Unavailable Unavailable Surgery Details Not on file Complications Check Surgery Details section. Procedure Estimated Blood Loss Check Surgery Details section. Procedure Findings Check Surgery Details section. Procedure Specimens Taken Check Surgery Details section.
--- OUTSIDE RECORDS SUMMARY | 2023-11-04 13:34 | XMS_ITS | Encounter Summary ---
Author Name Unknown Organization [facility] Address [address] [place] [address] Care Team Providers Care Back Feeder Plywood Layup Line Name Role Phone Unavailable Primary Care Provider Unavailabl e Encounter Details Date Type Department Care Team (Late st Contact Info) Description 12/21/2022 Clinical Communication Department of Neurology in [place], [place] [address] [place] [address] Nils Fuentes M.D. [address] [phone] Social History Tobacco Use Types Packs/Day Years [...] documented as of this encounter Visit Diagnoses Not on filedocumented in this encounter
--- OUTSIDE RECORDS SUMMARY | 2023-11-04 13:34 | XMS_ITS | Clinical Summary ---
Author Name Unknown Organization [facility] Address [address] [place] [address] Care Team Providers Care Subscription Crew Leader Name Role Phone Unavailable Primary Care Provider Unavailabl e Source Comments Patient records contain information from all sites at [facility]. For routine questions regarding patient records, call [phone] during business hours, M-F 8:00 AM - 5:00 PM Central Time. Record requests for emergency care only can be directed to [phone] at any time.[facility] Allergies Active Allergy Reactions Criticality Noted Date [...] Orientation Not on file Plan of Treatment Health Maintenance Due Date Last Done Comments CT Colonography 1959 Cologuard 1959 Colonoscopy 1959 Colorectal Cancer Screening 1959 FIT 1960 HIV Screening 1960 Hepatitis C Screening 1959 Lipid (Cholesterol) Screening 1959 COVID-19 Vaccine (#1) 1959 Zoster Vaccines (1 of 2) 2009 Influenza Vaccine (#1) 2023 8, 08/13/2008, 08/13/2008, Additional history exists Depression Screening (Annual PHQ-2) 10/03/2023 Fasting Glucose for Diabetes Screening 09/16/2025 09/16/2022, 07/25/2022, 07/24/2022, Additional history exists DTaP,Tdap,and Td Vaccines (2 - Td or Tdap) 12/07/2025 12/08/2015 Pneumococcal vaccine (0-64 years) Aged Out No longer eligible based on patient's age to complete this topic
--- OUTSIDE RECORDS SUMMARY | 2023-11-04 13:34 | XMS_ITS | Encounter Summary ---
Author Name Unknown Organization [facility] Address [address] [place] [address] Care Team Providers Care Grain Oilseed Or Pasture Farm Manager Name Role Phone Unavailable Primary Care Provider Unavailabl e Reason for Visit * Outpatient (Routine) - Closed Specialty Diagnoses / Procedures Referred By Maria Del Rosario t Referred To Contact Diagnoses Numbness Procedures EMG Lino Leone M.D. [address] [phone] [facility] Region Referral ID Status Reason Start Date Expiration Date Visits Re quested Visits Authorized [id number] Closed 01/12/2023 01/12/2024 1 1 Encounter Details Date Type Department Care Team ([facility] Contact Info) Description 01/12/2023 8:45 AM CDT Diagnostic Department of Neurology in [place], [place] [address] [address] Lino Leone M.D. [address] [address] Numbness Social History Tobacco Use Types Packs/Day Years [...] on file documented as of this encounter Procedures Procedure Name Priority Date/Time Associated Diagnosis Comments EMG Routine 01/12/2023 8:39 AM CDT Numbness documented in this encounter Results * EMG (01/12/2023 8:39 AM CDT) 01/12/2023 8:45 AM CDT Narrative [facility] EMG - 01/12/2023 9:14 AM CDT Table formatting from the original result was not included. 12-Jan-2023 ? Electromyography ? Final Report Study Number: 1 EMG Power Grader Operator: Lino Leone. Referred by: LINO LEONE () Referred for: CTS Referral Code: ?211 RX: 211 ??230 SUMMARY: Prior to starting the procedure, the patient's identity was verified, all available records were reviewed, the nature of the procedure was explained, the appropriate sites of the exam were confirmed directly with the patient, and a pre-procedure pause was performed for final verification of all of the above. Given the patient's use of anticoagulation (INR 2.0 09/2022), the risks and benefits of the needle EMG were reviewed and the patient agreed to proceed. ??During the examination, adequate hemostasis was achieved and no bleeding complications were noted. Nerve conduction studies in the right upper extremity revealed median motor response with a markedly prolonged distal latency reduced amplitude and conduction velocity. ??Ulnar motor response was normal. ??Median antidromic sensory response was absent. ??Ulnar antidromic sensory response showed a prolonged distal latency reduced amplitude. ??Radial antidromic sensory response was normal. ??In the left upper extremity the median motor response again showed a prolonged distal latency but preserved amplitude. ??Median antidromic sensory response showed a prolonged distal latency reduced amplitude. ??Ulnar antidromic sensory response showed mildly prolonged distal latency. ??Needle EMG of the right upper extremity revealed high amplitude long duration motor units with complexity and reduced recruitment in distal median greater than ulnar nerve innervated muscles with fibrillation potentials in distal median nerve innervated muscles. ??More proximal muscles were normal. ??Limited needle EMG of left hand muscles revealed high amplitude long duration motor units with reduced recruitment in the APB. CLINICAL INTERPRETATION: Abnormal study. 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 ??There is also electrodiagnostic evidence chronic, relatively mild, right greater than left ulnar neuropathies which are poorly localizable without evidence of ongoing denervation on this study. Merline Leone () NERVE CONDUCTIONS ??Record Rep ?? Normal ??Normal Distal Normal F-Wave F-Wave Temp Nerve Type Site Stim Side Amp Amp CV CV Lat Lat Lat Est (??C) Median Motor APB ??R 2.0 (> 4.0) 33 (> 48) 10.1 (< 4.5) ?? 34.0 Ulnar Motor ADM ??R 7.2 (> 6.0) 53 (> 51) 3.3 (< 3.6) ?? 33.9 Median Sensory Dig II ??R NR (> 15.0) ??(> 56) NR (< 3.6) ?? 33.4 Radial Sensory Wrist ??R 22 (> 20.0) ??(> 49) 2.1 (< 2.9) ?? 32.8 Ulnar Sensory Dig V ??R 6 (> 10.0) 58 (> 54) 3.8 (< 3.1) ?? 33.5 Median Motor APB ??L 5.6 (> 4.0) 44 (> 48) 8.5 (< 4.5) ?? 32.0 Median Sensory Dig II ??L 3 (> 15.0) ??(> 56) 8.7 (< 3.6) ?? 31.6 Ulnar Sensory Dig V ??L 13 (> 10.0) ??(> 54) 3.5 (< 3.1) ?? 31.5 NEEDLE EMG ??Ins Spont MUP ??Recruitment Duration Amplitude Phases Muscle Side Act Fib Fasc Normal Activ Reduced Rapid Long Short High Low % Turns Abductor pollicis brevis R INC + 0 ----- ??++ ??+ ??+ ?? ++ Abductor pollicis brevis L NL 0 0 ----- ??+ ??+ ??+ ?? ++ First dorsal interosseous L NL 0 0 NL ? First dorsal interosseous R NL 0 0 ----- ?+ ??+ ? Flexor Pollicis Longus R NL 0 0 NL ?+/- ? Pronator teres R NL 0 0 NL ? Biceps brachii R NL 0 0 NL ? Triceps brachii (lateral head) R NL 0 0 NL ? This interpretation has been electronically signed: Lino Leone M.D. at 01/12/2023 9:13:19 AM CDT Lino Leone M.D. NEUROLOGY ORDERAB LES [facility] Organization Address City/State/ZIP Co de Phone Number EMG documented in this encounter Visit Diagnoses Diagnosis Numbness documented in this encounter
== END 2023-11-04 13:33 | disposition home or self-care (01) ==
LOC: NFLDREF 13:32
PROVIDERS: PCP Family Medicine; Visit Provider Family Medicine
DX: E03.9 Hypothyroidism, unspecified (principal)
CPT/HCPCS: 84443

== ENCOUNTER 2024-03-13 17:01 | Outpatient (CLI) | payer OTHER, SELFPAY ==
--- OUTSIDE RECORDS SUMMARY | 2024-03-13 17:06 | XMS_ITS ---
Author Organization [facility] Address [address] [place] [address] Care Team Providers Care Worship Director Name Role Phone Unavailable Unavailable Unavailable Surgery Details Not on file Complications Check Surgery Details section. Procedure Estimated Blood Loss Check Surgery Details section. Procedure Findings Check Surgery Details section. Procedure Specimens Taken Check Surgery Details section.
--- OUTSIDE RECORDS SUMMARY | 2024-03-13 17:06 | XMS_ITS | Referral Summary ---
Author Organization [facility] Address [address] [place] [address] Care Team Providers Care Barrel Tester And Drainer Name Role Phone Unavailable Primary Care Provider Unavailabl e Source Comments Patient records contain information from all sites at [facility]. For routine questions regarding patient records, call [phone] during business hours, M-F 8:00 AM - 5:00 PM Central Time. Record requests for emergency care only can be directed to [phone] at any time.[facility] Allergies Active Allergy Reactions Criticality Noted Date [...] file Plan of Treatment Not on file Procedures Procedure Name Priority Date/Time Associated Diagnosis Comments EXTI COMPREHENSIVE METABOLIC PANEL, S/P Routine 09/16/2022 11:52 AM TEST ENGINEERING INTERN from Last 3 Months or Most Recently Relevant to Health Maintenance
--- OUTSIDE RECORDS SUMMARY | 2024-03-13 17:06 | XMS_ITS | Clinical Summary ---
Author Organization [facility] Address [address] [place] [address] Care Team Providers Care International Project Engineer Name Role Phone Unavailable Primary Care Provider Unavailabl e Source Comments Patient records contain information from all sites at [facility]. For routine questions regarding patient records, call [phone] during business hours, M-F 8:00 AM - 5:00 PM Central Time. Record requests for emergency care only can be directed to [phone] at any time.[facility] Allergies Active Allergy Reactions Criticality Noted [...] HIV Screening 1959 Hepatitis C Screening 1959 Zoster Vaccines (1 of 2) 2009 COVID-19 Vaccine (2022-2 4 season) 2023 Influenza Vaccine (#1) 2023 08/13/2008, 2004 Depression Screening (Annual PHQ-2) 10/03/2023 Fall Risk Screen (Annual) 02/23/2024 Pneumococcal vaccine (65+ ye ars) (1 of 1 - PCV) 02/23/2024 Fasting Glucose for Diabetes Screening 09/16/2025 09/16/2022, 07/25/2022, 07/24/2022, Additional history exists DTaP,Tdap,and Td Vaccines (2 - Td or Tdap) 12/07/2025 12/08/2015 Procedures Procedure Name Priority Date/Time Associated Diagnosis Comments EXTI COMPREHENSIVE METABOLIC PANEL, S/P Routine 09/16/2022 11:52 AM RAIL CAR MAINTENANCE MECHANIC from Last 3 Months or Most Recently Relevant to Health Maintenance
[2024-03-13 17:27] LABS: INR, Point of Care* 1.1 (0.8-1.4)
[2024-03-13 21:58] LABS: Basophils Absolute Auto 0.07 K/uL (0.00-0.30); Basophils Percent Auto 0.8 % (0.0-3.0); Eosinophils Absolute Auto 0.32 K/uL (0.00-0.50); Eosinophils Percent Auto 3.8 % (0.0-7.0); Hematocrit 42.8 % (37.0-53.0); Hemoglobin* 14.5 gm/dL (13.5-17.5); Immature Granulocytes Abs Auto 0.04 K/uL (0.00-0.30); Immature Granulocytes Pct Auto 0.5 %; Lymphocytes Absolute Auto 2.57 K/uL (0.90-2.90); Lymphocytes Percent Auto 30.3 % (20-44); Mean Corpuscular HGB Conc 34 gm/dL (32-36); Mean Corpuscular Hemoglobin 32 pg (26-34); Mean Corpuscular Volume 93 fL (80-100); Monocytes Percent Auto 7.6 % (0.0-11.0); Neutrophils Absolute Auto 4.83 K/uL (1.7-7.0); Platelet Count* 182 K/uL (140-440); RDW Coefficient of Variation % 13.4 % (11.5-15.5); Red Blood Count 4.61 m/uL (4.30-5.90); White Blood Count* 8.47 K/uL (4.50-11.00)
[2024-03-13 22:04] LABS: Chloride* 97 mmol/L (96-114); Potassium* 4.1 mmol/L (3.6-5.1); Sodium* 135 mmol/L (135-149)
[2024-03-13 22:07] LABS: Alanine Aminotransferase* 31 U/L (4-50); Anion Gap 10 mEq/L (7-15); Blood Urea Nitrogen* 24 mg/dL (7-30); Carbon Dioxide* 28 mmol/L (20-32); Cholesterol* 286 mg/dL (90-199); Creatinine* 0.8 mg/dL (0.5-1.5); Estimated Glomerular Filt Rate 98 ml/min; Glucose* 137 mg/dL (60-115); Slide Review Reflex No
[2024-03-13 22:08] LABS: Calcium* 9.8 mg/dL (8.4-10.6); HDL Cholesterol* 59 mg/dL (>=40); LDL Cholesterol Calculated 165 mg/dL (<100); Triglycerides* 309 mg/dL (40-149)
[2024-03-13 22:11] LABS: Phenytoin Dilantin* 13.6 ug/mL (10.0-20.0)
[2024-03-13 22:34] LABS: PSA Screen* 1.09 ng/mL (0.10-4.00)
== END 2024-03-13 17:02 | disposition home or self-care (01) ==
PROVIDERS: PCP Family Medicine; Visit Provider Family Medicine
DX: I10 Essential (primary) hypertension (principal); G40.909 Epilepsy, unspecified, not intractable, without status epilepticus; E78.2 Mixed hyperlipidemia; Z51.81 Encounter for therapeutic drug level monitoring; Z79.01 Long term (current) use of anticoagulants; Z12.5 Encounter for screening for malignant neoplasm of prostate
CPT/HCPCS: 80048; 80061; 80185; 84460; 85025; 85610; G0103

== ENCOUNTER 2024-03-15 11:17 | Day surgery (SDC) | payer OTHER, SELFPAY ==
[2024-03-15] VITALS (9 sets, daily range): BP systolic 122–153; BP diastolic 56–75; PULSE 76–89; RESP 12–20; TEMP 36.6; O2SAT 94–99; BMI 54.8
--- OUTSIDE RECORDS SUMMARY | 2024-03-15 11:19 | XMS_ITS | Referral Summary ---
Author Organization [facility] Address [address] [place] [address] Care Team Providers Care Inside Sales Trainer Name Role Phone Unavailable Primary Care Provider Unavailabl e Source Comments Patient records contain information from all sites at [facility]. For routine questions regarding patient records, call [phone] during business hours, M-F 8:00 AM - 5:00 PM Central Time. Record requests for emergency care only can be directed to [phone] at any time.[facility] Allergies Active Allergy Reactions Criticality [...] METABOLIC PANEL, S/P Routine 09/16/2022 11:52 AM MALTHOUSE LABORER from Last 3 Months or Most Recently Relevant to Health Maintenance
--- OUTSIDE RECORDS SUMMARY | 2024-03-15 11:19 | XMS_ITS | Clinical Summary ---
Author Organization [facility] Address [address] [place] [address] Care Team Providers Care Rug Weaver Name Role Phone Unavailable Primary Care Provider Unavailabl e Source Comments Patient records contain information from all sites at [facility]. For routine questions regarding patient records, call [phone] during business hours, M-F 8:00 AM - 5:00 PM Central Time. Record requests for emergency care only can be directed to [phone] at any time.[facility] Allergies Active Allergy Reactions Criticality Noted [...] METABOLIC PANEL, S/P Routine 09/16/2022 11:52 AM WRAPPER STRIPPER from Last 3 Months or Most Recently Relevant to Health Maintenance
--- OUTSIDE RECORDS SUMMARY | 2024-03-15 11:19 | XMS_ITS ---
Author Organization [facility] Address [address] [place] [address] Care Team Providers Care Warehouse Shipper Name Role Phone Unavailable Unavailable Unavailable Surgery Details Not on file Complications Check Surgery Details section. Procedure Estimated Blood Loss Check Surgery Details section. Procedure Findings Check Surgery Details section. Procedure Specimens Taken Check Surgery Details section.
[2024-03-15] MEDS: BUPIVACAINE 0.5 %/EPI 1:200K INJECTION (12:15)
[2024-03-15] MEDS: ETHYL CHLORIDE 1 APPLICATION 1 APPLIC TOPICAL (12:15)
--- NOTE | 2024-03-15 12:19 | SUR.PREOP ---
SAME DAY SURGERY LOCAL INJECTION SITE VERIFICATION WAS PERFORMED BY CHELSI URIBE AND PATIENT PRIOR TO LOCAL ANESTHETIC BEING INJECTED TO OPERATIVE SITE.
--- NOTE | 2024-03-15 12:46 | SUR.OPER ---
PATIENT QUESTIONS ANSWERED SATISFACTORILY PREOPERATIVELY.? PATIENT BROUGHT TO OR #3 PER WHEELCHAIR.? Patient positioned supine on OR #3 bed.? The perioperative?team supported both arms bilaterally on arm boards. Final approval of positioning by surgeon.?
--- NOTE | 2024-03-15 13:02 | PM.ORPRC ---
Procedure Note Date of procedure: 03/15/24 Procedure: Preop diagnosis: Left upper extremity carpal tunnel syndrome Postop diagnosis: Left upper extremity carpal tunnel syndrome Procedure: Left upper extremity carpal tunnel release Anesthesia: Local Surgeon: Redd Roberts MD licensed investment sales assistant: PETAR Hernandez EBL: 5 mL Complications: None Specimens: None Drains: None Indications: The patient has a history of left upper extremity carpal tunnel syndrome symptoms. Despite appropriate nonoperative management consisting of nighttime bracing and occupational therapy they continue to have symptoms. Operative intervention was recommended. The risks, benefits alternatives and expected outcomes were discussed in detail. These included but were not limited to: Infection, bleeding, injury to blood vessel or nerve, venous thromboembolism. All questions were answered to their satisfaction. The patient was placed supine on the operating room table. Local anesthesia was established with 0.5% Marcaine with epinephrine and 2% lidocaine with epinephrine. The hand was prepped and draped in usual sterile fashion. A longitudinal incision was made centered over the radial border of the ring finger at the base of the palm. Subcutaneous dissection was sharply taken through the palmar fascia and the palmaris brevis to the transverse carpal ligament. The ligament was divided in line with the incision. Proximal and distal dissection was carried with tenotomy and Metzenbaum scissors for a wide decompression of the carpal tunnel. The wound was closed with a 3-0 nylon. A bulky dry dressing was applied, sponge and needle counts were correct x 2. The patient tolerated the procedure well, there were no apparent complications. They were sent to same day surgery in satisfactory condition. Plan: Use of the hand as tolerates. Discontinue the intraoperative dressing on postoperative day 3 and may get the wound wet as tolerates. Follow up in the office in 2 weeks for a wound check and suture removal.
== END 2024-03-15 13:30 | disposition home or self-care (01) ==
LOC: OR 11:18
PROVIDERS: PCP Family Medicine; Visit Provider Orthopaedic Surgery
PROC: (CPT 64721; principal; 2024-03-15 12:30)
DX: G56.02 Carpal tunnel syndrome, left upper limb (principal)
CPT/HCPCS: 64721; J3490

== ENCOUNTER 2024-04-20 11:21 | Outpatient (CLI) | payer OTHER, SELFPAY ==
--- OUTSIDE RECORDS SUMMARY | 2024-04-24 06:02 | XMS_ITS | Clinical Summary ---
Author Organization [facility] Address [address] [place] [address] Care Team Providers Care Roller Engraver Name Role Phone Unavailable Primary Care Provider Unavailabl e Source Comments Patient records contain information from all sites at [facility]. For routine questions regarding patient records, call [phone] during business hours, M-F 8:00 AM - 5:00 PM Central Time. Record requests for emergency care only can be directed to [phone] at any time.[facility] Allergies Active Allergy Reactions Criticality Noted Date [...] 2009 COVID-19 Vaccine (2022-2 4 season) 2023 Depression Screening (Annual PHQ-2) 10/03/2023 Fall Risk Screen (Annual) 02/23/2024 Pneumococcal vaccine (65+ ye ars) (1 of 1 - PCV) 02/23/2024 Influenza Vaccine (#1) 2024 08/13/2008, 2004 Fasting Glucose for Diabetes Screening 09/16/2025 09/16/2022, 07/25/2022, 07/24/2022, Additional history exists DTaP,Tdap,and Td Vaccines (2 - Td or Tdap) 12/07/2025 12/08/2015
--- OUTSIDE RECORDS SUMMARY | 2024-04-24 06:02 | XMS_ITS ---
Author Organization [facility] Address [address] [place] [address] Care Team Providers Care Supervisor Finishing Room Name Role Phone Unavailable Unavailable Unavailable Surgery Details Not on file Complications Check Surgery Details section. Procedure Estimated Blood Loss Check Surgery Details section. Procedure Findings Check Surgery Details section. Procedure Specimens Taken Check Surgery Details section.
--- OUTSIDE RECORDS SUMMARY | 2024-04-24 06:02 | XMS_ITS | Referral Summary ---
Author Organization [facility] Address [address] [place] [address] Care Team Providers Care Kitchen Steward Name Role Phone Unavailable Primary Care Provider Unavailabl e Source Comments Patient records contain information from all sites at [facility]. For routine questions regarding patient records, call [phone] during business hours, M-F 8:00 AM - 5:00 PM Central Time. Record requests for emergency care only can be directed to [phone] at any time.[facility] Allergies Active Allergy Reactions Criticality Noted [...]
== END 2024-04-20 11:22 | disposition home or self-care (01) ==
LOC: NFLDREF 04-24 06:00
PROVIDERS: PCP Family Medicine; Referring Provider Family Medicine; Visit Provider Family Medicine
DX: Z86.718 Personal history of other venous thrombosis and embolism (principal); Z79.01 Long term (current) use of anticoagulants; Z51.81 Encounter for therapeutic drug level monitoring
CPT/HCPCS: 85610

== ENCOUNTER 2024-09-17 14:41 | Outpatient (CLI) | payer OTHER, SELFPAY | END 2024-09-17 14:42 | disposition home or self-care (01) | PROVIDERS: PCP Family Medicine; Visit Provider Family Medicine | DX: R73.9 Hyperglycemia, unspecified (principal); E78.2 Mixed hyperlipidemia; I10 Essential (primary) hypertension; E03.9 Hypothyroidism, unspecified; G40.909 Epilepsy, unspecified, not intractable, without status epilepticus; Z51.81 Encounter for therapeutic drug level monitoring | CPT/HCPCS: 80048; 80061; 80185; 83036; 84443; 84460; 85025 ==

== ENCOUNTER 2025-07-29 09:12 | Emergency (ER) | payer OTHER, SELFPAY ==
--- OUTSIDE RECORDS SUMMARY | 2025-07-29 09:17 | XMS_ITS | Clinical Summary ---
Author Organization [facility] Address [address] [place] [address] Care Team Providers Care Curriculum Coordinator Name Role Phone Ezequiel Hopkins MD Primary Care Provider + Allergies Active Allergy Reactions Criticality Noted Date Comments Fluconazole 01/20/2007 Medications multivitamin (MVI) tablet Take 1 Tablet by mouth once daily. 0 0 Active MISCELLANEOUS MEDICAL SUPPLY (GRADUATED COMPRESSION STOCKINGS) For personal use. Length: calf Strength: 30-40 mmHg Circumference in cm: For calf Ankle to calf 1 Packet 0 4 Active CPAPIndications :SOMMER (obstructive sleep apnea) CPAP Mask 1 unit 0 6 Active phenytoin extended (DILANTIN) 100 mg ER capsuleIndicati ons:Other epilepsy without status epilepticus, not intractable (HC),Medication management TAKE 4 CAPSULES BY MOUTH IN THE MORNING AND 3 IN THE EVENING 630 capsule 3 8 Active Additional Information Patient taking differently: Take 2 capsules in the morning and 5 capsules at bedtime., Reported on 07/29/2022 potassium chloride (KLOR-CON M20) 20 mEq Extended-Releas e tablet Take 20 mEq by mouth once daily with a meal. 2 Active tamsulosin (FLOMAX) 0.4 mg capsule Take 0.4 mg by mouth at bedtime. 2 Active gabapentin (NEURONTIN) 600 mg tablet Take 900 mg by mouth at bedtime. Active lisinopril-hydr ochlorothiazide , 20-25 mg, (PRINZIDE, ZESTORETIC) 20-25 mg per tablet Take 2 Tablets by mouth once daily. Active warfarin (COUMADIN) 5 mg tablet Take by mouth once daily. Take 5 mg (one tablet) on Tuesday, Tuesday, and Tuesday. Take 7.5 mg (1.5 tablets) all other days of the week. Active levothyroxine (SYNTHROID) 50 mcg tablet Take 50 mcg by mouth before breakfast. Active naproxen (ALEVE) 220 mg tablet Take 440 mg by mouth every 8 hours if needed. Active famotidine (Pepcid AC) 20 mg tablet Take 20 mg by mouth two times daily. Active oxyCODONE (ROXICODONE) 5 mg immediate release tabletIndicatio ns:Cellulitis and abscess of left lower extremity Take 0.5-1 Tablets (2.5-5 mg) by mouth every 6 hours if needed for Pain. 6 Tablet 2 Active torsemide (DEMADEX) 10 mg tabletIndicatio ns:Cellulitis and abscess of left lower extremity,Leg edema Take 3 Tablets (30 mg) by mouth two times daily. 120 Tablet 2 Active Senna 8.6 mg tablet Take 8.6 mg by mouth at bedtime. 4 Active furosemide (LASIX) 40 mg tablet 4 Active ciprofloxacin-d exAMETHasone (CIPRODEX) otic suspensionIndic ations:Acute bacterial infection of right middle ear Place 4 Drops into right ear two times daily. 7.5 mL 4 Active Active Problems Problem Noted Date Diagnosed Date Cellulitis of left lower extremity 07/22/2022 Hypothyroid 07/22/2022 Sepsis 07/22/2022 Epilepsy without status epilepticus, not intract able 10/21/2015 Anticoagulation monitoring, INR range 2-3 2012 Mild recurrent major depression 06/25/2010 Hyperlipidemia 01/20/2010 Hypertension 01/01/2010 Obstructive sleep apnea 07/28/2007 Acute thromboembolism of ashlyn p veins of right lower extremity 03/06/2007 Unspecified epilepsy without mention of intractable epilepsy 01/24/2007 Morbid obesity 01/20/2007 BPH 01/20/2007 Polyp of transverse colon Encounters Date Type Department Care Team Description 06/17/2025 5:53 AM CDT - 06/17/2025 7:00 AM CDT Emergency [facility] [address] [place] [address] Matthew Levine, Laceration of left ring finger without foreign body without damage to nail, initial encounter (Primary Dx); Anticoagulated on warfarin Discharge Disposition: Home Self Care 06/17/2025 Travel from Last 3 Months Immunizations Immunization Administration Dates Next Due Influenza, IIV3 (Age >=3 years) 08/13/2008,09/02 Tdap 12/08/2015 Family History Medical History Relation Name Comments Chronic granulomatous disease Father Other Father Denzel's Granu lomatosis Relation Name Status Comments Father Social History Tobacco Use Types Packs/Day Years Used Date Smoking Tobacco: Former Cigarettes 0.5 30 Smokeless Tobacco: Never Tobacco Cessation:Counseling Given: Not Answered Comments:quit 4 years ago Alcohol Use Standard Drinks/Week Comments Not Currently 0 (1 standard drink = 0.6 oz pur e alcohol) PHQ-2 Answer Date Recorded PHQ-2 Score 0 12/02/2018 Social Connections Answer Date Recorded Frequency of Communication with Friends and Fami ly Not on file 01/10/2023 Interpersonal Safety Answer Date Record ed Are you being hit, kicked, p ushed or yelled at (see row info)? 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 Gender Identity Not on file Sexual Orientation Not on file Occupation Industry Job Start Date Job End Date Not on file Not on file Not on file Not on file Obstetrics History Last Filed Vital Signs Vital Sign Reading Time Taken Comments Blood Pressure 138/74 06/17/2025 6:00 AM CDT Pulse 63 06/17/2025 5:58 AM CDT Temperature 36.7 C (98 F) 06/17/2025 5:58 AM CDT Respiratory Rate 18 06/17/2025 5:58 AM CDT Oxygen Saturation 98% 06/17/2025 5:58 AM CDT Inhaled Oxygen Concentration - - Weight 121.1 kg (267 lb) 06/17/2025 5:55 AM CDT Height 167.6 cm (5' 6) 06/17/2025 5:55 AM CDT Body Mass Index 43.09 06/17/2025 5:55 AM CDT Plan of Treatment Health Maintenance Due Date Last Done Comments Hepatitis C screening for age 18-79 1977 Pneumococcal series for age 50+ (1 of 1 - PCV) 2009 Zoster (shingles) series for age 50+ (1 of 2) 2009 RSV vaccine for adults or (1 - Risk 60-74 years 1-dose series) 2019 Depression screening for age 12+ 09/29/2019 09/29/2018, 09/28/2018, 09/27/2018, Additional history exists BMI (ht and wt on same day) for age 18+ 10/27/2019 10/27/2018, 09/27/2018, 10/26/2017, Additional history exists Lipids for age 45-75 12/19/2022 12/19/2017, 12/24/2016, 12/08/2015, Additional history exists Colonoscopy through age 75 12/27/2022 12/27/2017 Influenza Vaccine (#1) 2025 08/13/2008, 2004 Tetanus booster 12/07/2025 12/08/2015, 10/2005 (Completed outside of [facility]) Hepatitis B series for 19+ Aged Out N o longer eligible based on patient's age to complete this topic Goals Goal Patient Goal Type Associated Problems Recent Progress Patient-Stated? Author BLOOD PRESSURE - MAINTAINS BP less than 140/90 Blood Pressure No Ezequiel Hopkins MD Procedures Procedure Name Priority Date/Time Associated Diagnosis Comments COLONOSCOPY 12/27/2017 1:48 PM CDT LIPID PANEL W REFLEX MEASURED LDL Routine 12/19/2017 3:39 PM CDT Hyperlipidemia, unspecified hyperlipidemia type from Last 3 Months or Most Recently Relevant to Health Maintenance Results * COLONOSCOPY (12/27/2017 1:48 PM CDT) 12/27/2017 1:48 PM CDT Narrative Transcriptions Asuncion Hwang DO - 12/27/2017 2:39 PM CDT Patient Name: Oscar Guzman Procedure Date: 12/27/2017 Gender: Male Date of : 1960 Admit Type: Ambulatory Procedure: Colonoscopy Proceduralist: Asuncion Hwang MD [facility] Indications/Pre-Op Diagnosis: Screening for colorectal malignant neoplasm, This is the patient's first screening colonoscopy Medications: Propofol per Anesthesia Procedure Description: The patient had risks, benefits and alternatives explained to andgave informed consent. The patient had a stable cardiopulmonary status and judged an adequate candidate for conscious sedation. The colonoscope was passed through the anus and advanced to thececum, identified by appendiceal orifice and ileocecal valve. Thecolonoscopy was performed without difficulty. The patient tolerated the procedure well. The quality of the bowel preparation was good. The ileocecal valve, appendiceal orifice, and rectum were photographed. Complications: No immediate complications. Estimated Blood Loss & Specimen: Estimated blood loss: none. Specimen collected - Yes and sent to Laboratory Findings: A 8 mm polyp was found in the transverse colon. The polyp was semi-pedunculated. The polyp was removed with a hot snare. Resectionand retrieval were complete. Verification of patient identification forthe specimen was done. Estimated blood loss was minimal. The exam was otherwise without abnormality. Impressions/Post-Op Diagnosis: - One 8 mm polyp in the transverse colon, removed with a hot snare. Resected and retrieved. - The examination was otherwise normal. Recommendation: - Discharge patient to home. - Patient has a contact number available for emergencies. The signsand symptoms of potential delayed complications were discussed with the patient. Return to normal activities tomorrow. Written discharge instructions were provided to the patient. - High fiber diet. - Continue present medications. - Await pathology results. - Repeat colonoscopy in 5 years for surveillance. Asuncion Hwang MD 12/27/2017 2:39:38 PM This report has been signed electronically. Note Initiated On: 12/27/2017 1:48 PM us Asuncion Hwang DO PROCEDURE ORD Fi nal Result * (ABNORMAL) LIPID PANEL W REFLEX MEASURED LDL (12/19/2017 3:39 PM CDT) CHOLESTEROL,TOTAL 239(H) 100 - 199 mg/dL 12/19/2017 4:12 PM CDT [facility] TRIGLYCERIDES 190(H) <150 mg/dL 12/19/2017 4:12 PM CDT [facility] HDL CHOLESTEROL 67 >40 mg/dL 8 4:12 PM CDT [facility] NON-HDL CHOLESTEROL 172(H) <145 mg/dl 12/19/2017 4:12 PM CDT [facility] CHOL/HDL RATIO 3.57 <4.50 12/19/2017 4:12 PM CDT [facility] LDL CHOLESTEROL 134(H) <=130 mg/dL 12/19/2017 4:12 PM CDT [facility] PROVIDER ORDERED STATUS RANDOM 12/19/2017 4:12 PM CDT [facility] Blood BLOOD SPECIMEN / Unknown Venipuncture / Unknown 12/19/2017 3:39 PM CDT 12/19/2017 3:40 PM CDT Ezequiel Hopkins MD [place] [address] from Last 3 Months or Most Recently Relevant to Health Maintenance Insurance [facility] Advance Directives Documents on File Type Date Recorded Patient Lens Matcher Expl anation Healthcare Directive 07/24/2022 022 * Full Code (Latest Code Status on File) Date Activated Date Inactivated Comments 07/23/2022 9:17 AM 07/29/2022 3:16 PM Question Answer Comments Code Status Discussion: Reviewed Preferences * Full Code Date Activated Date Inactivated Comments 07/22/2022 10:33 AM 07/23/2022 9:17 AM Question Answer Comments Code Status Discussion: Unable to Assess Preferences, Provider to review later * Full Code Date Activated Date Inactivated Comments 12/27/2017 1:51 PM 12/27/2017 5:14 PM Care Teams Curriculum Coordinator Relationship Specialty Start Date End Date Ezequiel Hopkins MD [address] [place] [address] PCP - General Family Practice 07/23/22
[2025-07-29 09:39] VITALS: BP 111/67; PULSE 78; RESP 16; TEMP 36.8; O2SAT 98; BMI 40.7
--- NOTE | 2025-07-29 09:53 | ED.GENADULT ---
HPI - General Adult General Time Seen by Provider: 09:53 Date Seen: 07/29/25 Chief complaint: Diarrhea Stated complaint: Umbilical hernia, diarrhea Time Seen by Provider: 07/29/25 09:20 Source: patient and RN notes reviewed Mode of arrival: ambulatory Limitations: no limitations History of Present Illness HPI narrative: This 65-year-old male is coming in with concern umbilical hernia pain, constipation for about 3-6 months now with liquid stool and 3 nights of diarrheal accidents after going to bed. Patient has a known umbilical hernia, he did see general surgery but in the interim lost almost 100 lb of weight intentionally. Also notes that he has been constipated maybe for 3-6 months. He does have hypothyroidism, he had a normal TSH of 3.5 on routine screening in October of 2023. Reese his umbilical hernia became painful, was more difficult to reduce. He has not had that happen again. He has started to have loose stools, the last 3 nights after he has gone to sleep he has had fecal accidents of liquid stool. He denies any abdominal pain at this time. His appetite is unchanged, he still minimizes his oral intake. He has not had any fevers. He notes no new medication changes over the last months. Patient has a history of a right lower extremity DVT, is chronically anticoagulated with Coumadin. He did stop his Coumadin on his own 3 days ago thinking that he might end up with emergency surgery. Related Data Home Medications ?Medication ?Instructions ?Recorded ?Confirmed famotidine 20 mg tablet 20 mg PO BID 06/25/22 07/29/25 multivitamin (Multiple Vitamins 1 tab PO DAILY 06/25/22 07/29/25 tablet) tamsulosin 0.4 mg capsule 0.4 mg PO DAILY 07/29/25 07/29/25 Previous Rx's ?Medication ?Instructions ?Recorded gabapentin 600 mg tablet 600 - 900 mg (1 - 1.5 x 600 mg) PO 09/19/24 BID #225 tabs ipratropium bromide 21 mcg (0.03 2 spray intranasal BID #30 mL 12/21/24 %) nasal spray atorvastatin 40 mg tablet 40 mg PO QHS #90 tabs 03/26/25 lisinopril 20 2 tab PO QDAY #180 tabs 03/26/25 mg-hydrochlorothiazide 25 mg tablet warfarin 5 mg tablet See Rx Instructions PO QDAY #110 04/26/25 tabs phenytoin sodium extended 100 mg 300 - 400 mg (3 - 4 x 100 mg) PO 05/24/25 capsule BID #630 caps levothyroxine 100 mcg tablet 100 mcg PO DAILY #90 tabs 05/27/25 metformin 500 mg tablet,extended 1,000 mg (2 x 500 mg) PO QDAY #180 05/27/25 release 24 hr tabs furosemide 40 mg tablet 80 mg (2 x 40 mg) PO DAILY #180 06/24/25 tabs Allergies Allergy/AdvReac Type Severity Reaction Status Date / Time Sulfa (Sulfonamide Allergy Severe Chest Verified 07/29/25 09:37 Antibiotics) discomfort fluconazole AdvReac Intermediate Verified 07/29/25 09:37 Review of Systems Status of ROS: Reports: 6 or more systems reviewed and unremarkable except as noted in History and below [facility] Medical History Type 2 diabetes mellitus, without long-term current use of insulin ?E11.9 - Type 2 diabetes mellitus without complications (ICD-10) Mixed hyperlipidemia ?E78.2 - Mixed hyperlipidemia (ICD-10) Primary hypertension ?I10 - Essential (primary) hypertension (ICD-10) Acute renal failure ?N17.9 - Acute kidney failure, unspecified (ICD-10) Edema ?R60.9 - Edema, unspecified (ICD-10) Hypothyroidism ?E03.9 - Hypothyroidism, unspecified (ICD-10) Umbilical hernia ?K42.9 - Umbilical hernia without obstruction or gangrene (ICD-10) Stress fracture of metatarsal bone of left foot (11/2020) ?M84.375A - Stress fracture, left foot, initial encounter for fracture (ICD-10) Recurrent deep vein thrombosis (DVT) (2006) ?I82.409 - Acute embolism and thrombosis of unspecified deep veins of unspecified lower extremity (ICD-10) Peripheral neuropathy ?G62.9 - Polyneuropathy, unspecified (ICD-10) Osteoarthritis of knee ?M17.10 - Unilateral primary osteoarthritis, unspecified knee (ICD-10) Obstructive sleep apnea syndrome ?G47.33 - Obstructive sleep apnea (adult) (pediatric) (ICD-10) Mild episode of recurrent major depressive disorder (06/25/10) ?F33.0 - Major depressive disorder, recurrent, mild (ICD-10) History of adenomatous polyp of colon (12/27/17) ?Z86.010 - Personal history of colonic polyps (ICD-10) Gastroesophageal reflux disease ?K21.9 - Gastro-esophageal reflux disease without esophagitis (ICD-10) Exogenous obesity ?E66.09 - Other obesity due to excess calories (ICD-10) Epilepsy ?G40.909 - Epilepsy, unspecified, not intractable, without status epilepticus (ICD-10) Acute medial meniscus tear of right knee (06/10/20) ?S83.241A - Other tear of medial meniscus, current injury, right knee, initial encounter (ICD-10) BPH (benign prostatic hyperplasia) ?N40.0 - Benign prostatic hyperplasia without lower urinary tract symptoms (ICD-10) Surgical History History of carpal tunnel release (03/01/23) ?Z98.890 - Other specified postprocedural states (ICD-10) History of carpal tunnel release ?Z98.890 - Other specified postprocedural states (ICD-10) Family History Other Denzel's granulomatosis Social History Narrative: -Michelle 4 kids Non smoker Social EtOH What is your current living situation?: I presently have a place to live Problems where you live: no known problems In the past 12 months, utilities in danger of being shut off: no In past 12 months, lack of transportation kept you from medical appts, meetings, work, or getting things needed for daily living: no In the past 12 mos, have been you worried that your food would run out before you had money to buy more?: never true In the past 12 mos, the food you bought just didn't last and you didn't have money to buy more?: never true Highest level of school completed/degree received: high school graduate Smoking Status: Former smoker How often do you have a drink containing alcohol: monthly or less Alcohol type: beer Alcohol type details: social drinker How many standard drinks containing alcohol do you have on a typical day: 1 or 2 How often do you have six or more drinks on one occasion: Monthly AUDIT-C Alcohol total score: 3 Non-prescribed substance use: denies use How often does anyone, including family, friends and others, physically hurt you: never How often does anyone, including family, friends and others, insult or talk down to you: never How often does anyone, including family, friends and others, threaten you with harm: never How often does anyone, including family, friends and others, scream or curse at you: never Exam Const: Vital Signs, click to edit/add: Vital Signs - 24 hr 07/29/25 09:39 Temperature 98.2 F Pulse Rate [Pulse Oximeter] 78 Respiratory Rate 16 Blood Pressure [Ri ght Upper Arm] 111/67 Pulse Oximetry 98 Oxygen Delivery Me thod Room Air This 65-year-old male is alert, interactive, no apparent distress. Seen in exam room 5, lying in the bed comfortable. He is very pleasant, conversive, joking at times. Sclera clear, symmetrical facial function, speech normal. Lungs are clear, good air entry, no wheezing or crackles, no tachypnea, no accessory muscle use. CV regular rate and rhythm, no murmur, normal S1-S2. Abdomen is soft, obese but not distended, normal bowel sounds. He has no organomegaly, no masses noted. He does have an umbilical hernia, I could reduce it somewhat but he is able to reduce it fully and does it more comfortably than what I was doing. He has chronic lower extremity pigmentary changes, chronic edema of both legs. Documenting provider has reviewed patient's vital signs: yes Course Course ED Course: Will be doing CT imaging of his abdomen pelvis to further evaluate the umbilical hernia, the bowel. He could have developed colitis. He could have significant constipation with liquid stool developing around constipation. I doubt serious pathology at this time given his abdominal exam but he certainly does have an umbilical hernia, was able to reduce it. Will look at full complement of labs. We will see where his INR is. Reevaluation(s) Time of Reevaluation #1: 11:54 Reevaluation #1: Did review patient's CT with him, provided him a copy. He was resting when I came in. We did review that there is no evidence of strangulated hernia, will have him follow-up with General surgery as he is having more problems with his hernia. As far as further workup, did review with patient that his liver enzymes are mildly elevated in historically have not been so when I look back in the chart. With his weight loss, would think that he would be less likely to have elevation of these. We are going to look at a right upper quadrant ultrasound. Need to ensure no concerns for cholecystitis on this. He did have cholelithiasis on his CT. With the liver enzymes being mildly elevated and the new worsening diarrhea, do want to make sure that we do not have any evidence of cholecystitis. As far as his bowels, no abnormalities seen of the colon itself. There is no evidence of constipation, no thickening or concerns for colitis. We will obtain the ultrasound. Time of Reevaluation #2: 13:08 Reevaluation #2: Have reviewed with patient his ultrasound. He indeed has cholelithiasis but no evidence of cholecystitis. His liver enzymes are mildly elevated but at this time there is no identifiable other symptomatology of cholecystitis. He will be discharged for further outpatient follow-up. Patient does state he has had a colonoscopy before but thinks it was years ago. I have asked him to follow-up with Dr. Hopkins in make sure the colonoscopy is up-to-date. Also did review with him the need for regular bowel movements with adequate fiber. This was stressed by the surgeon. Consultations Consultation #1: Spoke with general surgeon Dr. Hernandez. Reviewed the case. She wants to make sure patient's colonoscopy is up-to-date. Stressed the need for regular bowel movements with adequate fiber the goal of formed bowel movement daily. We reviewed the cholelithiasis, the umbilical hernia. She use requesting that he follow-up with them in clinic. He should be stable for discharge to home for further outpatient monitoring. Time: 13:03 Vital Signs Vital signs: Initial Vital Signs Temperature 98.2 F 07/29/25 09:39 Temperature Source Temporal Artery Scan 07/29/25 09:39 Pulse Rate 78 07/29/25 09:39 Respiratory Rate 16 07/29/25 09:39 Blood Pressure 111/67 07/29/25 09:39 Blood Pressure Mean 81 07/29/25 09:39 Pulse Oximetry 98 07/29/25 09:39 Oxygen Delivery Method Room Air 07/29/25 09:39 Vital Signs Temperature 98.2 F 07/29/25 09:39 Pulse Rate 78 07/29/25 09:39 Respiratory Rate 16 07/29/25 09:39 Blood Pressure 111/67 07/29/25 09:39 Pulse Oximetry 98 07/29/25 09:39 Oxygen Delivery Method Room Air 07/29/25 09:39 Temperature 98.2 F 07/29/25 09:39 Pulse Rate 78 07/29/25 09:39 Respiratory Rate 16 07/29/25 09:39 Blood Pressure 111/67 07/29/25 09:39 Pulse Oximetry 98 07/29/25 09:39 Oxygen Delivery Method Room Air 07/29/25 09:39 Medical Decision Making Lab Data Lab results reviewed: Yes I reviewed the patient's lab results Labs: Lab Results 07/29/25 07/29/25 Range/Units 10:04 10:15 WBC 5.91 (4.50-11.00) K/uL RBC 4.71 (4.30-5.90) m/uL Hgb 14.5 (13.5-17.5) gm/dL Hct 43.8 (37.0-53.0) % MCV 93 (80-100) fL MCH 31 (26-34) pg MCHC 33 (32-36) gm/dL RDW Coeff of Kapil 13.3 (11.5-15.5) % Plt Count 183 (140-440) K/uL Neut % (Auto) 61.5 (42.0-72.0) % Lymph % (Auto) 23.2 (20-44) % Jerome % (Auto) 11.0 (0.0-11.0) % Eos % (Auto) 3.6 (0.0-7.0) % Baso % (Auto) 0.5 (0.0-3.0) % Neut # (Auto) 3.64 (1.7-7.0) K/uL Lymph # (Auto) 1.37 (0.90-2.90) K/uL Jerome # (Auto) 0.70 (0.00-0.90) K/UL Eos # (Auto) 0.21 (0.00-0.50) K/uL Baso # (Auto) 0.03 (0.00-0.30) K/uL Abs Immat Gran (auto) 0.01 (0.00-0.30) K/uL Imm/Tot Granulo (auto) 0.2 % INR 1.24 H (0.91-1.10) Sodium 129 L (135-149) mmol/L Potassium 3.9 (3.6-5.1) mmol/L Chloride 93 L (96-114) mmol/L Carbon Dioxide 27 (20-32) mmol/L Anion Gap 9 (7-15) mEq/L BUN 34 H (7-30) mg/dL Creatinine 0.8 (0.5-1.5) mg/dL Estimated Creat Clear 65.57 Estimated GFR 98 ml/min Glucose 138 H (60-115) mg/dL Lactate 1.2 (0.5-1.9) mmol/L Calcium 8.6 (8.4-10.6) mg/dL Total Bilirubin 0.9 (0.1-1.5) mg/dL AST 49 H (12-35) U/L ALT 62 H (4-50) U/L Alkaline Phosphatase 123 (40-150) U/L C-Reactive Protein 5.1 H (0.5-1.0) mg/dL Total Protein 6.7 (6.0-8.3) g/dL Albumin 3.7 (3.3-5.0) g/dL TSH 2.710 (0.270-4.200) uIU/mL POC Creatinine 1.0 (0.6-1.3) mg/dl Imaging Data CT scan - abdomen: Attestation: I have reviewed the pertinent imaging results. Radiologist's impression: Patient: ALEXI CLARK Facility:?[facility] RIS Patient ID:?[id number] Site Patient ID:?[id number]. Site :?[id number] Study:?CT-Abdomen/Pelvis W/ 123CC [id number]/27/2025 11:14:28 AM Ordering Physician:Ashley Samuels Final Report: INDICATION: UMBILICAL HERNIA PAIN, DIARRHEA WITH RECENT CONSTIPATION. TECHNIQUE: CT abdomen and pelvis acquired with 123 cc of Isovue 370 IV contrast. COMPARISON: None. FINDINGS: Lower chest: Unremarkable. Liver: Unremarkable. Normal in size and attenuation. No suspicious masses. Gallbladder and bile ducts: Cholelithiasis. No inflammation or biliary ductal dilation. Pancreas: Unremarkable. No mass or inflammation. Spleen: Scattered calcified granulomata. Adrenal glands: Unremarkable. No nodules. Kidneys: Small bilateral renal cysts. No suspicious masses, stones, or hydronephrosis. GI tract: Unremarkable. Normal in caliber. No sign of mass or inflammation. Normal appendix. Vasculature: Normal caliber abdominal aorta with moderate atherosclerotic calcification. Mesenteric arteries are patent. Lymph nodes: No lymphadenopathy. Peritoneum/Abdominal Wall: Moderate-sized fat-containing periumbilical hernia with mild surrounding inflammatory stranding. No bowel involvement. No free fluid in the pelvis. No free air. Pelvis: Unremarkable. Bones: Right-sided L5 pars interarticularis defect. No anterolisthesis. Otherwise, unremarkable for age. IMPRESSION: 1. Moderate-sized fat-containing periumbilical hernia with mild surrounding inflammatory stranding. No bowel involvement. 2. No other acute findings within the abdomen pelvis. 3. Cholelithiasis without evidence for acute cholecystitis. Please note that all CT scans at this facility use dose modulation, iterative reconstruction, and/or weight-based dosing when appropriate to reduce radiation dose to as low as reasonably achievable. Dictated by Priyank Valdez MD @ 07/29/2025 11:28:54 AM (Electronic Signature) US - abdomen: Attestation: I have reviewed the pertinent imaging results. Radiologist's impression: Patient: ALEXI CLARK Facility:?[facility] Patient ID:?[id number] Site Patient ID:?[id number]. Site :?[id number] Study:?US-Gallbladder -07/29/2025 12:24:40 PM Ordering Physician:?Shadia Samuels Final Report: INDICATION: Elevated LFTs, diarrhea COMPARISON: Same day CT abdomen pelvis TECHNIQUE: Osborne-scale and color Doppler ultrasound of the gallbladder and bile ducts FINDINGS: There is a large shadowing gallstone. The gallbladder is completely contracted around the gallstones. Gallbladder wall thickness is 3.3 millimeters, upper limits of normal. Sonographic Gonsalez`s sign is not documented. The extrahepatic bile duct measures 2 millimeters proximally. IMPRESSION: 1. Large gallstone. 2. No sonographic findings of acute cholecystitis. 3. No bile duct dilatation. Dictated by Kandi Moore MD @ 07/29/2025 12:31:19 PM (Electronic Signature) Discharge Plan Discharge Clinical Impression: Elevation of levels of liver transaminase levels Hernia, umbilical Qualifiers: Obstruction and gangrene presence: without obstruction or gangrene Qualified Code(s): K42.9 - Umbilical hernia without obstruction or gangrene Cholelithiasis Qualifiers: Cholelithiasis location: gallbladder Cholecystitis presence: without cholecystitis Biliary obstruction: without biliary obstruction Qualified Code(s): K80.20 - Calculus of gallbladder without cholecystitis without obstruction Diarrhea Qualifiers: Diarrhea type: unspecified type Qualified Code(s): R19.7 - Diarrhea, unspecified Patient Disposition: Home, Self-Care Condition: Stable Instructions: Gallstones (ED), Umbilical Hernia (ED), Acute Diarrhea (ED) Additional Instructions: INR was 1.24 today. Need to schedule follow up with primary provider and general surgery as soon as you are able to. Would recommend restarting your coumadin. Need to have liver enzymes rechecked within the next 2-4 weeks with your primary provider. Review handout, if you have any concern for strangulated umbilical hernia or gallstones becoming symptomatic, please follow-up in the ER. For the diarrhea, this could be due to changes in your diet. Recommend adequate fiber. If you do become constipated again, need the still have adequate fiber but may need to initiate MiraLax. Would not start MiraLax if you are having active diarrhea as this loosens stools. Work on improving fiber in your diet. Activity Level: Activity as Tolerated Prescriptions: No Action famotidine 20 mg tablet 20 mg PO BID multivitamin [Multiple Vitamins] Tablet 1 tab PO DAILY ipratropium bromide 21 mcg (0.03 %) spray,non-aerosol 2 spray intranasal BID Qty: 30 5RF Rx Instructions: administer into each nostril tamsulosin 0.4 mg capsule 0.4 mg PO DAILY gabapentin 600 mg tablet 600 - 900 mg PO BID Qty: 225 3RF lisinopril-hydrochlorothiazide 20-25 mg tablet 2 tab PO QDAY Qty: 180 1RF atorvastatin 40 mg tablet 40 mg PO QHS Qty: 90 1RF warfarin 5 mg tablet See Rx Instructions PO QDAY Qty: 110 2RF Protocol: Dose Management Condition: Tuesday Dose/Route: 5 mg Instruction: 1 x 5 mg tablet Condition: Tuesday Dose/Route: 7.5 mg Instruction: 1.5 x 5 mg tablets Condition: Tuesday Dose/Route: 7.5 mg Instruction: 1.5 x 5 mg tablets Condition: Tuesday Dose/Route: 7.5 mg Instruction: 1.5 x 5 mg tablets Condition: Dose/Route: 7.5 mg Instruction: 1.5 x 5 mg tablets Condition: Tuesday Dose/Route: 5 mg Instruction: 1 x 5 mg tablet Condition: Tuesday Dose/Route: 7.5 mg Instruction: 1.5 x 5 mg tablets Protocol Text: Adjustment Start Date: Tuesday06/28/25 INR Value: 1.8 INR Date: 06/28/25 Recheck Date: 07/12/25 Rx Instructions: 5mg Tue/Tue/Tue, 7.5mg Tue///Tue phenytoin sodium extended 100 mg capsule 300 - 400 mg PO BID Qty: 630 0RF Rx Instructions: 300 MG IN AM 400 MG IN PM metformin 500 mg tablet extended release 24 hr 1,000 mg PO QDAY Qty: 180 0RF levothyroxine 100 mcg tablet 100 mcg PO DAILY Qty: 90 0RF furosemide 40 mg tablet 80 mg PO DAILY Qty: 180 0RF Follow Up/Referrals: Ezequiel Hopkins MD [Primary Care Provider, Family Practice] Stand Alone Forms: [employer] Info Instructions
--- NOTE | 2025-07-29 10:02 | CRLHL7_ITS ---
For Patients: As a result of the Century Cures Act, medical imaging exams and procedure reports are released immediately into your electronic medical record. You may view this report before your referring provider. If you have questions, please contact your health care provider. INDICATION: UMBILICAL HERNIA PAIN, DIARRHEA WITH RECENT CONSTIPATION. TECHNIQUE: CT abdomen and pelvis acquired with 123 cc of Isovue 370 IV contrast. COMPARISON: None. FINDINGS: Lower chest: Unremarkable. Liver: Unremarkable. Normal in size and attenuation. No suspicious masses. Gallbladder and bile ducts: Cholelithiasis. No inflammation or biliary ductal dilation. Pancreas: Unremarkable. No mass or inflammation. Spleen: Scattered calcified granulomata. Adrenal glands: Unremarkable. No nodules. Kidneys: Small bilateral renal cysts. No suspicious masses, stones, or hydronephrosis. GI tract: Unremarkable. Normal in caliber. No sign of mass or inflammation. Normal appendix. Vasculature: Normal caliber abdominal aorta with moderate atherosclerotic calcification. Mesenteric arteries are patent. Lymph nodes: No lymphadenopathy. Peritoneum/Abdominal Wall: Moderate-sized fat-containing periumbilical hernia with mild surrounding inflammatory stranding. No bowel involvement. No free fluid in the pelvis. No free air. Pelvis: Unremarkable. Bones: Right-sided L5 pars interarticularis defect. No anterolisthesis. Otherwise, unremarkable for age. IMPRESSION: 1. Moderate-sized fat-containing periumbilical hernia with mild surrounding inflammatory stranding. No bowel involvement. 2. No other acute findings within the abdomen pelvis. 3. Cholelithiasis without evidence for acute cholecystitis. Please note that all CT scans at this facility use dose modulation, iterative reconstruction, and/or weight-based dosing when appropriate to reduce radiation dose to as low as reasonably achievable. Dictated by Priyank Valdez MD @ 07/29/2025 11:28:54 AM (Electronically Signed)
[2025-07-29 10:24] LABS: Lactate* 1.2 mmol/L (0.5-1.9)
[2025-07-29 10:29] LABS: Hematocrit* 43.8 % (37.0-53.0); Hemoglobin* 14.5 gm/dL (13.5-17.5); Immature Granulocytes Abs Auto 0.01 K/uL (0.00-0.30); Immature Granulocytes Pct Auto 0.2 %; Lymphocytes Absolute Auto 1.37 K/uL (0.90-2.90); Mean Corpuscular HGB Conc 33 gm/dL (32-36); Mean Corpuscular Hemoglobin 31 pg (26-34); Mean Corpuscular Volume 93 fL (80-100); RDW Coefficient of Variation % 13.3 % (11.5-15.5); Red Blood Count* 4.71 m/uL (4.30-5.90); White Blood Count* 5.91 K/uL (4.50-11.00)
[2025-07-29 10:31] LABS: Creatinine, Point-of-Care* 1.0 mg/dl (0.6-1.3)
[2025-07-29 10:35] LABS: Slide Review Reflex No
[2025-07-29 10:37] LABS: Chloride* 93 mmol/L (96-114)
[2025-07-29 10:38] LABS: Albumin* 3.7 g/dL (3.3-5.0); Potassium* 3.9 mmol/L (3.6-5.1); Sodium* 129 mmol/L (135-149)
[2025-07-29 10:40] LABS: Blood Urea Nitrogen* 34 mg/dL (7-30); Creatinine* 0.8 mg/dL (0.5-1.5); Est. Creatinine Clearance* 65.57; Estimated Glomerular Filt Rate 98 ml/min
[2025-07-29 10:41] LABS: Alanine Aminotransferase* 62 U/L (4-50); Alkaline Phosphatase* 123 U/L (40-150); Anion Gap 9 mEq/L (7-15); Aspartate Amino Transferase* 49 U/L (12-35); Bilirubin Total* 0.9 mg/dL (0.1-1.5); Calcium* 8.6 mg/dL (8.4-10.6); Carbon Dioxide* 27 mmol/L (20-32); Glucose* 138 mg/dL (60-115); Total Protein* 6.7 g/dL (6.0-8.3)
[2025-07-29 10:54] LABS: INR 1.24 (0.91-1.10); Prothrombin Time 16.5 Seconds
[2025-07-29 11:27] LABS: TSH With Reflex to FT4* 2.710 uIU/mL (0.270-4.200)
--- NOTE | 2025-07-29 11:53 | CRLHL7_ITS ---
For Patients: As a result of the Century Cures Act, medical imaging exams and procedure reports are released immediately into your electronic medical record. You may view this report before your referring provider. If you have questions, please contact your health care provider. INDICATION: Elevated LFTs, diarrhea COMPARISON: Same day CT abdomen pelvis TECHNIQUE: Osborne-scale and color Doppler ultrasound of the gallbladder and bile ducts FINDINGS: There is a large shadowing gallstone. The gallbladder is completely contracted around the gallstones. Gallbladder wall thickness is 3.3 millimeters, upper limits of normal. Sonographic Gonsalez`s sign is not documented. The extrahepatic bile duct measures 2 millimeters proximally. IMPRESSION: 1. Large gallstone. 2. No sonographic findings of acute cholecystitis. 3. No bile duct dilatation. Dictated by Kandi Moore MD @ 07/29/2025 12:31:19 PM (Electronically Signed)
== END 2025-07-29 13:30 | disposition home or self-care (01) ==
PROVIDERS: Emergency Provider Family Medicine; PCP Family Medicine
DX: K42.9 Umbilical hernia without obstruction or gangrene (principal); K80.20 Calculus of gallbladder without cholecystitis without obstruction; R74.01 Elevation of levels of liver transaminase levels
CPT/HCPCS: 36415; 74177; 76705; 80053; 82565; 83605; 84443; 85025; 85610; 86140; 99285; Q9967

== ENCOUNTER 2025-08-09 13:12 | Outpatient (CLI) | payer OTHER, SELFPAY | END 2025-08-09 13:13 | disposition home or self-care (01) | PROVIDERS: PCP Family Medicine; Visit Provider Family Medicine | DX: E78.2 Mixed hyperlipidemia (principal); E11.9 Type 2 diabetes mellitus without complications; G40.909 Epilepsy, unspecified, not intractable, without status epilepticus; N40.0 Benign prostatic hyperplasia without lower urinary tract symptoms | CPT/HCPCS: 80061; 80185; 82043; 82570; G0103 ==

== ENCOUNTER 2025-08-19 09:54 | Outpatient (CLI) | payer OTHER, SELFPAY ==
--- NOTE | 2025-08-19 12:27 | P.ANES_ITS ---
Anesthesia Charges Start Date/Time Anesthesia Start Date: 08/19/25 Anesthesia Start Time: 11:47 Stop Date/Time Anesthesia Stop Date: 08/19/25 Anesthesia Stop Time: 12:17 Coding CPT Codes CPT Codes: ANES LWR INTST SCR COLSC - 87291 ([id number]) P3 - PATIENT W/SEVERE SYS DISEASE, QK - HOUSEKEEPER SUPERVISOR 2-4 CNCRNT ANES PROC, QX - SEO ANALYST SVC W/ MD MED DIRECTION
--- NOTE | 2025-08-19 12:27 | W.ANESCHARGE ---
Anesthesia Charges Start Date/Time Anesthesia Start Date: 08/19/25 Anesthesia Start Time: 11:47 Stop Date/Time Anesthesia Stop Date: 08/19/25 Anesthesia Stop Time: 12:17 Coding CPT Codes CPT Codes: ANES LWR INTST SCR COLSC - 93592 ([id number]) P3 - PATIENT W/SEVERE SYS DISEASE, QK - GIS SCIENTIST 2-4 CNCRNT ANES PROC, QX - HRIS SPECIALIST SVC W/ MD MED DIRECTION
--- NOTE | 2025-08-19 13:06 | P.ANES_ITS ---
Anesthesia Charges Start Date/Time Anesthesia Start Date: 08/19/25 Anesthesia Start Time: 11:47 Stop Date/Time Anesthesia Stop Date: 08/19/25 Anesthesia Stop Time: 12:17 Coding CPT Codes CPT Codes: ANES LWR INTST SCR COLSC - 56813 ([id number]) QK - LACING STRING CUTTER 2-4 CNCRNT ANES PROC, QX - PLASTIC HOSPITAL PRODUCTS ASSEMBLER SVC W/ MED DIRECTION, P3 - PATIENT W/SEVERE SYS DISEASE
--- NOTE | 2025-08-19 13:06 | W.ANESCHARGE ---
Anesthesia Charges Start Date/Time Anesthesia Start Date: 08/19/25 Anesthesia Start Time: 11:47 Stop Date/Time Anesthesia Stop Date: 08/19/25 Anesthesia Stop Time: 12:17 Coding CPT Codes CPT Codes: ANES LWR INTST SCR COLSC - 69057 ([id number]) QK - CARBONIZER TESTER 2-4 CNCRNT ANES PROC, QX - TELETYPE TECHNICIAN SVC W/ MED DIRECTION, P3 - PATIENT W/SEVERE SYS DISEASE
== END 2025-08-19 09:55 | disposition home or self-care (01) ==
LOC: OP CLINIC 09:55
PROVIDERS: PCP Family Medicine; Visit Provider Surgery
DX: Z12.11 Encounter for screening for malignant neoplasm of colon (principal); Z86.0100 Personal history of colon polyps, unspecified
CPT/HCPCS: 00812; 45378; J2704

== ENCOUNTER 2025-09-10 06:20 | Day surgery (SDC) | payer OTHER, SELFPAY ==
[2025-09-10] VITALS (11 sets, daily range): BP systolic 118–133; BP diastolic 54–74; PULSE 57–82; RESP 14–16; TEMP 36.5–37.2; O2SAT 95–99; BMI 41.3
[2025-09-10] MEDS: LACTATED RINGERS 1000 ML 1,000 ML 100 ML IV ×2 (06:30→09:20)
[2025-09-10 08:01] LABS: INR, Point of Care* 1.1 (0.8-1.4)
--- NOTE | 2025-09-10 08:09 | SUR.OPER ---
PATIENT QUESTIONS ANSWERED SATISFACTORILY PREOPERATIVELY. PATIENT BROUGHT TO OR #1 PER CART. Patient positioned supine on OR #1 bed. The perioperative team supported arms bilaterally on arm boards. Final approval of positioning by surgeon.
[2025-09-10] MEDS: BUPIVACAINE 0.25% 30 ML 20 ML INJECTION (08:12)
--- NOTE | 2025-09-10 09:25 | P.ANES_ITS ---
Anesthesia Charges Start Date/Time Anesthesia Start Date: 09/10/25 Anesthesia Start Time: 07:53 Stop Date/Time Anesthesia Stop Date: 09/10/25 Anesthesia Stop Time: 09:21 Coding CPT Codes CPT Codes: ANESTH REPAIR OF HERNIA - 71691 ([id number]) P3 - PATIENT W/SEVERE SYS DISEASE, QK - CLOTH TRIMMER HAND 2-4 CNCRNT ANES PROC, QX - ALUMINA PLANT SUPERVISOR SVC W/ MD MED DIRECTION
--- NOTE | 2025-09-10 09:25 | W.ANESCHARGE ---
Anesthesia Charges Start Date/Time Anesthesia Start Date: 09/10/25 Anesthesia Start Time: 07:53 Stop Date/Time Anesthesia Stop Date: 09/10/25 Anesthesia Stop Time: 09:21 Coding CPT Codes CPT Codes: ANESTH REPAIR OF HERNIA - 16209 ([id number]) P3 - PATIENT W/SEVERE SYS DISEASE, QK - ENROLLMENT COUNSELOR 2-4 CNCRNT ANES PROC, QX - CONSUMER SALES REPRESENTATIVE SVC W/ MD MED DIRECTION
--- NOTE | 2025-09-10 09:27 | W.PM.H&PU ---
History & Physical Update History & Physical Update H&P Reviewed and patient assessed: No changes noted
--- NOTE | 2025-09-10 09:28 | P.GSOP_ITS ---
Operative Note Date of procedure: 09/10/25 Pre-op diagnosis: Umbilical hernia, incarcerated preperitoneal fat Post-op diagnosis: Same Type of Procedure: Open umbilical hernia repair with placement of Phasix mesh Indications: Patient is a 65-year-old male who presented to clinic with a symptomatic umbilical hernia. Please see consultation for full discussion regarding different treatment options. Risks and benefits of operative intervention were discussed at length with the patient. Risks included but was not limited to: Bleeding, infection, risk of damage to surrounding structures, possible need for additional procedures and postoperative complications such as pneumonia, pulmonary emboli or [place]. All questions and concerns were addressed with the patient agreeing to proceed. Procedure Description: After discussing the risks and benefits of the procedure, the patient signed inf ormed consent.? The operative site was marked and the patient was brought to the operating room and placed on the operating table in supine position.? Care was taken to pad the patient's pressure points.?? The patient was then intubated by anesthesia.?? The operative site was then prepped and draped in the usual sterile fashion.? A time-out was then performed. A curvilinear incision was made at the umbilicus. Dissection was carried down into the subcutaneous tissue using cautery. The hernia sac was encountered a small incision in the hernia sac was created, all contents were reduced. Dissection was taken down to the fascia, and the umbilical stock was carefully dissected off of the hernia sac. Once the hernia sac was dissected out circumferentially, the peritoneal opening was closed with 2-0 Vicryl and the hernia sac completely reduced. The fascial edges were then cleared circumferentially. The hernia was 4 cm in size and so the decision was made to use a piece of mesh. A preperitoneal pocket was created using a combination of blunt dissection and cautery. Hemostasis appeared adequate. Once the posterior fascia was clear, a piece of 6 in x 8 in Phasix mesh was cut into a viejas and placed in the preperitoneal space with care to ensure that it laid flat. This was secured into place using circumferential 2 0 PDS interrupted sutures. The tails were then trimmed and the fascial opening was closed with a running 0 Vicryl. Local anesthetic was injected into the fascia, skin and subcutaneous tissues. The umbilicus was reapproximated to the fascia. The skin was then closed with running absorbable suture. A sterile dressing was then applied. ? The patient was then woken and transported to the recovery area in stable condition. ? The patient tolerated the procedure well. Findings: 4 cm umbilical hernia with incarcerated preperitoneal fat, reduced and fixed with placement of underlying Phasix mesh. Anesthesia: GETA Surgeon: Tomeka Danielle MD Estimated blood loss (mL): 10 Condition: stable Disposition: PACU
--- NOTE | 2025-09-10 09:49 | P.ANES_ITS ---
Anesthesia Charges Start Date/Time Anesthesia Start Date: 09/10/25 Anesthesia Start Time: 07:53 Stop Date/Time Anesthesia Stop Date: 09/10/25 Anesthesia Stop Time: 09:21 Coding CPT Codes CPT Codes: ANESTH REPAIR OF HERNIA - 91410 ([id number]) QK - RETAIL INVENTORY CONTROL CLERK 2-4 CNCRNT ANES PROC, QX - MANAGER LEADERSHIP DEVELOPMENT SVC W/ MD MED DIRECTION, P3 - PATIENT W/SEVERE SYS DISEASE
--- NOTE | 2025-09-10 09:49 | W.ANESCHARGE ---
Anesthesia Charges Start Date/Time Anesthesia Start Date: 09/10/25 Anesthesia Start Time: 07:53 Stop Date/Time Anesthesia Stop Date: 09/10/25 Anesthesia Stop Time: 09:21 Coding CPT Codes CPT Codes: ANESTH REPAIR OF HERNIA - 18963 ([id number]) QK - VENEER STACKER 2-4 CNCRNT ANES PROC, QX - DEATH SURVEYS CODER SVC W/ MD MED DIRECTION, P3 - PATIENT W/SEVERE SYS DISEASE
== END 2025-09-10 10:52 | disposition home or self-care (01) ==
PROVIDERS: PCP Family Medicine; Visit Provider Surgery
PROC: (CPT 49594; principal; 2025-09-10 07:45)
DX: K42.0 Umbilical hernia with obstruction, without gangrene (principal); E11.9 Type 2 diabetes mellitus without complications; Z79.01 Long term (current) use of anticoagulants
CPT/HCPCS: 49594; 00830; 36415; 82962; 85610; C1781; J0330; J0665; J0690; J1100; J1885; J2250; J2371; J2405; J2704; J2710; J3010; J3490; J7120

== ENCOUNTER 2025-09-16 12:55 | Emergency (ER) | payer OTHER, SELFPAY ==
[2025-09-16 13:05] VITALS: BP 128/70; PULSE 69; RESP 20; TEMP 36.5; O2SAT 95; BMI 39.9
--- NOTE | 2025-09-16 13:42 | ED_ITS ---
HPI - General Adult General Date Seen: 09/16/25 Chief complaint: Post Op Complication Stated complaint: Had surgery Bruising and blood coming from abd Time Seen by Provider: 09/16/25 13:42 Source: patient, family and RN notes reviewed Mode of arrival: ambulatory Limitations: no limitations History of Present Illness HPI narrative: Jassi is a very pleasant 65-year-old gentleman with history of type 2 diabetes, chronic anticoagulation secondary to remote history of DVT, umbilical hernia repair on TuesdaySeptember 10 who comes to the emergency room for evaluation regarding blood and some fluid coming from his umbilicus. As far as he and his family member no there were no complications to the surgery on Tuesday with Dr. Danielle. Today, patient notice some blood on his abdomen and notice some drainage coming from this area. You to notice bruising on his abdomen around the umbilicus. He has not had any fever nausea vomiting. He notes that he was stooling well until recently having a pizza. No new significant pain in this region. Related Data Home Medications ?Medication ?Instructions ?Recorded ?Confirmed famotidine 20 mg tablet 20 mg PO BID 06/25/22 multivitamin (Multiple Vitamins 1 tab PO DAILY 2 09/10/25 tablet) Previous Rx's ?Medication ?Instructions ?Recorded ipratropium bromide 21 mcg (0.03 2 spray intranasal BI D #30 mL 12/21/24 %) nasal spray warfarin 5 mg tablet See Rx Instructions PO QDAY #110 04/26/25 tabs atorvastatin 40 mg tablet 40 mg PO QHS #90 tabs fluticasone propionate 50 1 spray intranasal QDAY #16 grams 08/09/25 mcg/actuation nasal spray,suspension (Flonase Allergy Relief) gabapentin 600 mg tablet 600 - 900 mg (1 - 1.5 x 600 mg) PO 08/09/25 BID #225 tabs lisinopril 20 2 tab PO QDAY #180 tabs 04/26 mg-hydrochlorothiazide 25 mg tablet metformin 500 mg tablet,extended 500 mg PO QDAY #90 ta bs 08/09/25 release 24 hr phenytoin sodium extended 100 mg 300 - 400 mg (3 - 4 x 100 mg) PO 08/09/25 capsule BID #630 caps tamsulosin 0.4 mg capsule 0.4 mg PO DAILY #90 caps 04/26 levothyroxine 100 mcg tablet 100 mcg PO DAILY #90 tabs 08/23/25 hydrocodone 5 mg-acetaminophen 325 1 tab PO Q6H PRN pa in #15 tabs 09/10/25 mg tablet sennosides 8.6 mg capsule (senna) 8.6 mg PO DAILY PRN constipation 09/10/25 #90 caps cephalexin 500 mg capsule 500 mg PO TID #20 caps 09/16 Allergies Allergy/AdvReac Type Severity Reaction Status Date / Time Sulfa (Sulfonamide Allergy Severe Chest Verified 09/10/25 06:36 Antibiotics) discomfort fluconazole AdvReac Intermediate Verified 09/10/25 06:36 Review of Systems Status of ROS: Reports: 10 or more systems reviewed and unremarkable except as noted in History and below Const: Denies: fever or chills Cardio: Denies: chest pain or shortness of breath with exertion Resp: Denies: shortness of breath or cough GI: Reports: abdominal pain (Mild and unchanged); Denies: nausea or vomiting : Denies: painful urination Musculo: Denies: back pain PFSH [facility] Medical History Type 2 diabetes mellitus, without long-term current use of insulin ?E11.9 - Type 2 diabetes mellitus without complications (ICD-10) Mixed hyperlipidemia ?E78.2 - Mixed hyperlipidemia (ICD-10) Primary hypertension ?I10 - Essential (primary) hypertension (ICD-10) Acute renal failure ?N17.9 - Acute kidney failure, unspecified (ICD-10) Edema ?R60.9 - Edema, unspecified (ICD-10) Hypothyroidism ?E03.9 - Hypothyroidism, unspecified (ICD-10) Umbilical hernia ?K42.9 - Umbilical hernia without obstruction or gangrene (ICD-10) Stress fracture of metatarsal bone of left foot (11/2020) ?M84.375A - Stress fracture, left foot, initial encounter for fracture (ICD- 10) Recurrent deep vein thrombosis (DVT) (2006) ?I82.409 - Acute embolism and thrombosis of unspecified deep veins of unspecified lower extremity (ICD-10) Peripheral neuropathy ?G62.9 - Polyneuropathy, unspecified (ICD-10) Osteoarthritis of knee ?M17.10 - Unilateral primary osteoarthritis, unspecified knee (ICD-10) Obstructive sleep apnea syndrome ?G47.33 - Obstructive sleep apnea (adult) (pediatric) (ICD-10) Mild episode of recurrent major depressive disorder (06/25/10) ?F33.0 - Major depressive disorder, recurrent, mild (ICD-10) History of adenomatous polyp of colon (12/27/17) ?Z86.010 - Personal history of colonic polyps (ICD-10) Gastroesophageal reflux disease ?K21.9 - Gastro-esophageal reflux disease without esophagitis (ICD-10) Exogenous obesity ?E66.09 - Other obesity due to excess calories (ICD-10) Epilepsy ?G40.909 - Epilepsy, unspecified, not intractable, without status epilepticus (ICD-10) Acute medial meniscus tear of right knee (06/10/20) ?S83.241A - Other tear of medial meniscus, current injury, right knee, initial encounter (ICD-10) BPH (benign prostatic hyperplasia) ?N40.0 - Benign prostatic hyperplasia without lower urinary tract symptoms (ICD-10) Surgical History History of carpal tunnel release (03/01/23) ?Z98.890 - Other specified postprocedural states (ICD-10) History of carpal tunnel release ?Z98.890 - Other specified postprocedural states (ICD-10) Family History Other Denzel's granulomatosis Social History Narrative: -Michelle 4 kids Non smoker Social EtOH What is your current living situation?: I presently have a place to live Problems where you live: no known problems In the past 12 months, utilities in danger of being shut off: no In past 12 months, lack of transportation kept you from medical appts, meetings, work, or getting things needed for daily living: no In the past 12 mos, have been you worried that your food would run out before you had money to buy more?: never true In the past 12 mos, the food you bought just didn't last and you didn't have money to buy more?: never true Highest level of school completed/degree received: high school graduate Smoking Status: Former smoker How often do you have a drink containing alcohol: monthly or less Alcohol type: beer Alcohol type details: social drinker How many standard drinks containing alcohol do you have on a typical day: 1 or 2 How often do you have six or more drinks on one occasion: Monthly AUDIT-C Alcohol total score: 3 Non-prescribed substance use: denies use How often does anyone, including family, friends and others, physically hurt you : never How often does anyone, including family, friends and others, insult or talk down to you: never How often does anyone, including family, friends and others, threaten you with harm: never How often does anyone, including family, friends and others, scream or curse at you: never Exam Narrative: Exam Narrative: Alert and oriented. No acute distress. External ears eyes nose clear. Heart with regular rate and rhythm. Lungs are clear. Abdomen is soft obese. Large amount of arc like bruising ecchymosis noted in the periphery of the umbilicus that is actually resolving. There is some dried blood around the umbilicus. There is some mucosa serous discharge that we do take a culture from I did try to explore the wound with Q-tip and I do not see that there is any opening of the surgical incision. Const: Vital Signs, click to edit/add: Vital Signs - 24 hr 09/16/25 13:05 Temperature 97.7 F Pulse Rate [Pulse Oximeter] 69 Respiratory Rate 20 Blood Pressure [Ri ght Upper Arm] 128/70 Pulse Oximetry 95 Oxygen Delivery Me thod Room Air Documenting provider has reviewed patient's vital signs: yes Course Course ED Course: Oscar is presenting on postop day 7 for some drainage from his umbilicus after hernia repair. He has no systemic signs of infection but certainly this is not serous fluid. We did do a culture. Will discuss with Dr. Lopez, our director medical surgical about appropriate antibiotics or further imaging. Consultations Consultation #1: Dr Lopez does agree with antibiotics. She is cleaning the wound and suggest follow-up with later this week. Vital Signs Vital signs: Initial Vital Signs Temperature 97.7 F 09/16/25 13:05 Temperature Source Temporal Artery Scan 09/16/25 13:05 Pulse Rate 69 09/16/25 13:05 Respiratory Rate 20 09/16/25 13:05 Blood Pressure 128/70 09/16/25 13:05 Blood Pressure Mean 89 09/16/25 13:05 Blood Pressure Position Sitting 09/16/25 13:05 Pulse Oximetry 95 09/16/25 13:05 Oxygen Delivery Method Room Air 09/16/25 13:05 Vital Signs Temperature 97.7 F 09/16/25 13:05 Pulse Rate 69 09/16/25 13:05 Respiratory Rate 20 09/16/25 13:05 Blood Pressure 128/70 09/16/25 13:05 Pulse Oximetry 95 09/16/25 13:05 Oxygen Delivery Method Room Air 09/16/25 13:05 Temperature 97.7 F 09/16/25 13:05 Pulse Rate 69 09/16/25 13:05 Respiratory Rate 20 09/16/25 13:05 Blood Pressure 128/70 09/16/25 13:05 Pulse Oximetry 95 09/16/25 13:05 Oxygen Delivery Method Room Air 09/16/25 13:05 Medical Decision Making MDM Narrative Medical decision making narrative: 1. Surgical wound infection-this does appear to be superficial. Could certainly also be seroma with tendency to bleed as he is on anticoagulation. Wound culture was accomplished. Will place patient on Keflex 500 mg p.o. t.i.d. x7 days while awaiting recheck with his primary surgeon Dr. Danielle. Patient will follow-up on Tuesday or . The phone number for appointments is given to him. Recommend continued observation and should he notice fever, worsening redness, worsening drainage she should return to the ER for further evaluation. 2. Disposition-home at this time. Return as needed. Medical Records Medical records reviewed: Yes I reviewed the patient's medical records Discharge Plan Discharge Clinical Impression: Infected surgical wound Patient Disposition: Home, Self-Care Condition: Improved Additional Instructions: Continue to monitor wound and seek medical attention for vomiting, fever, worsening symptoms. Please follow-up with Dr. Danielle this week for a recheck. The phone number is [phone] for an appointment. We will be placing you on an antibiotic called Keflex for treatment of wound infection. Return to the ER as needed. Prescriptions: New cephalexin 500 mg capsule 500 mg PO TID Qty: 20 0RF No Action famotidine 20 mg tablet 20 mg PO BID multivitamin [Multiple Vitamins] Tablet 1 tab PO DAILY ipratropium bromide 21 mcg (0.03 %) spray,non-aerosol 2 spray intranasal BID Qty: 30 5RF Rx Instructions: administer into each nostril fluticasone propionate [Flonase Allergy Relief] 50 mcg/actuation spray,suspension 1 spray intranasal QDAY Qty: 16 5RF Rx Instructions: administer into each nostril metformin 500 mg tablet extended release 24 hr 500 mg PO QDAY Qty: 90 1RF tamsulosin 0.4 mg capsule 0.4 mg PO DAILY Qty: 90 3RF phenytoin sodium extended 100 mg capsule 300 - 400 mg PO BID Qty: 630 3RF Rx Instructions: 300 MG IN AM 400 MG IN PM lisinopril-hydrochlorothiazide 20-25 mg tablet 2 tab PO QDAY Qty: 180 3RF gabapentin 600 mg tablet 600 - 900 mg PO BID Qty: 225 3RF atorvastatin 40 mg tablet 40 mg PO QHS Qty: 90 3RF hydrocodone-acetaminophen 5-325 mg tablet 1 tab PO Q6H PRN (Reason: pain) Qty: 15 0RF senna 8.6 mg capsule 8.6 mg PO DAILY PRN (Reason: constipation) Qty: 90 0RF warfarin 5 mg tablet See Rx Instructions PO QDAY Qty: 110 2RF Protocol: Dose Management Condition: Tuesday Dose/Route: 5 mg Instruction: 1 x 5 mg tablet Condition: Tuesday Dose/Route: 7.5 mg Instruction: 1.5 x 5 mg tablets Condition: Tuesday Dose/Route: 7.5 mg Instruction: 1.5 x 5 mg tablets Condition: Tuesday Dose/Route: 7.5 mg Instruction: 1.5 x 5 mg tablets Condition: Dose/Route: 7.5 mg Instruction: 1.5 x 5 mg tablets Condition: Tuesday Dose/Route: 5 mg Instruction: 1 x 5 mg tablet Condition: Tuesday Dose/Route: 7.5 mg Instruction: 1.5 x 5 mg tablets Protocol Text: Adjustment Start Date: Tuesday06/28/25 INR Value: 1.8 INR Date: 06/28/25 Recheck Date: 07/12/25 Rx Instructions: 5mg Tue/Tue/Tue, 7.5mg Tue///Tue levothyroxine 100 mcg tablet 100 mcg PO DAILY Qty: 90 0RF Follow Up/Referrals: Ezequiel Hopkins MD [Primary Care Provider, Family Practice] Stand Alone Forms: [facility] Info Instructions
--- NOTE | 2025-09-16 14:18 | PM.EN ---
Chart Event Note Chart Event Note: Patient presented to the emergency department 6 days after her open umbilical hernia repair with mesh. He had a large amount of bloody drainage this morning. Denies any significant pain. Per ER provider, drainage was slightly purulent in appearance. A wound culture was obtained. I did examine the patient. He has some ecchymosis superiorly. There is bloody crusting below the incision. There is some ecchymosis of the skin in the umbilicus. There is a slight odor to the area. No cellulitis noted. No drainage was expressed on my exam. I Suspect he had a seroma/hematoma from his anticoagulation which drained. No obvious cellulitis or purulent drainage on my exam though there is a slight odor. Since there is risk of infection with the implanted mesh, I do recommend treating with oral antibiotics with short-term follow-up. The wound was cleansed with Hibiclens. This was covered with gauze. The patient instructed that he can continue to shower and gently cleanse the skin, avoiding the incision, with soap. He should see Dr. Danielle later this week for a wound check. Dr. Edwards will prescribe Keflex for him.
== END 2025-09-16 14:38 | disposition home or self-care (01) ==
PROVIDERS: Emergency Provider Family Medicine; PCP Family Medicine
DX: T81.49XA Infection following a procedure, other surgical site, initial encounter (principal)
CPT/HCPCS: 87070; 87186; 99283; 99284